=== PATIENT | male | born 1970 | race American Indian/Alaskan Native ===

== ENCOUNTER 2018-11-23 11:44 | Emergency (ER) | payer OTHER, SELFPAY ==
[2018-11-23] MEDS ORDERED: PERCOCET 5/325 PO ONE (12:48)
--- NOTE | 2018-11-23 12:48 | Emergency Department Report ---
ED General Adult HPI - General Chief complaint: Abdominal Pain Stated complaint: LOWER BACK/STOMACH/R SIDE PAIN Time Seen by Provider: 11/23/18 11:52 Source: patient Mode of arrival: Ambulatory Limitations: No Limitations - History of Present Illness Initial comments: Patient is a 47-year-old male presents with right abdominal pain that has been going on since this morning. Patient states the pain is now 10/10 says it feels like is in the right upper quadrant radiates to his back. Patient denies any nausea or vomiting. He states he took some Motrin. But it didn't help. He denies any dysuria and he denies having any hematuria. - Related Data Allergies Allergy/AdvReac Type Severity Reaction Status Date / Time Fish Containing Products Allergy Swelling Verified 11/23/18 11:46 shellfish derived Allergy Swelling Verified 11/23/18 11:46 ED Review of Systems ROS: Stated complaint: LOWER BACK/STOMACH/R SIDE PAIN Other details as noted in HPI Constitutional: denies: chills, fever Eyes: denies: eye pain, eye discharge, vision change ENT: denies: ear pain, throat pain Respiratory: denies: cough, shortness of breath, wheezing Cardiovascular: denies: chest pain, palpitations Endocrine: no symptoms reported Gastrointestinal: denies: abdominal pain, nausea, diarrhea Genitourinary: denies: urgency, dysuria Musculoskeletal: denies: back pain, joint swelling, arthralgia Skin: denies: rash, lesions Neurological: denies: headache, weakness, paresthesias Psychiatric: denies: anxiety, depression Hematological/Lymphatic: denies: easy bleeding, easy bruising ED Past Medical Hx - Past Medical History Hx Hypertension: Yes - Surgical History Additional Surgical History: arm - Social History Smoking Status: Never Smoker Substance Use Type: Alcohol ED Physical Exam - General Limitations: No Limitations General appearance: alert, in no apparent distress - Head Head exam: Present: atraumatic, normocephalic - Eye Eye exam: Present: normal appearance - ENT ENT exam: Present: mucous membranes moist - Neck Neck exam: Present: normal inspection - Respiratory Respiratory exam: Present: normal lung sounds bilaterally. Absent: respiratory distress - Cardiovascular Cardiovascular Exam: Present: regular rate, normal rhythm. Absent: systolic murmur, diastolic murmur, rubs, gallop - GI/Abdominal GI/Abdominal exam: Present: soft, normal bowel sounds - Rectal Rectal exam: Present: deferred - Extremities Exam Extremities exam: Present: normal inspection - Back Exam Back exam: Present: normal inspection - Neurological Exam Neurological exam: Present: alert, oriented X3 - Psychiatric Psychiatric exam: Present: normal affect, normal mood - Skin Skin exam: Present: warm, dry, intact, normal color. Absent: rash ED Course Vital Signs 11/23/18 11/23/18 11:50 12:59 Temperature 97.9 F Pulse Rate 66 Respiratory 18 18 Rate Blood Pressure 159/81 O2 Sat by Pulse 99 99 Oximetry ED Medical Decision Making - Lab Data Result diagrams: 11/23/18 13:19 11/23/18 13:19 Lab Results 11/23/18 11/23/18 Range/Units 13:19 13:19 WBC 9.3 (4.5-11.0) K/mm3 RBC 5.15 H (3.65-5.03) M/mm3 Hgb 15.5 H (11.8-15.2) gm/dl Hct 45.3 (35.5-45.6) % MCV 88 (84-94) fl MCH 30 (28-32) pg MCHC 34 (32-34) % RDW 13.6 (13.2-15.2) % Plt Count 188 (140-440) K/mm3 Lymph % (Auto) 14.1 (13.4-35.0) % [place] % (Auto) 7.2 (0.0-7.3) % Eos % (Auto) 1.9 (0.0-4.3) % Baso % (Auto) 1.0 (0.0-1.8) % Lymph # 1.3 (1.2-5.4) K/mm3 [place] # 0.7 (0.0-0.8) K/mm3 Eos # 0.2 (0.0-0.4) K/mm3 Baso # 0.1 (0.0-0.1) K/mm3 Seg Neutrophils % 75.8 H (40.0-70.0) % Seg Neutrophils # 7.0 (1.8-7.7) K/mm3 Sodium 137 (137-145) mmol/L Potassium 4.1 (3.6-5.0) mmol/L Chloride 97.8 L (98-107) mmol/L Carbon Dioxide 25 (22-30) mmol/L Anion Gap 18 mmol/L BUN 19 (9-20) mg/dL Creatinine 1.4 (0.8-1.5) mg/dL Estimated GFR > 60 ml/min BUN/Creatinine Ratio 14 % Glucose 98 (75-100) mg/dL Calcium 9.4 (8.4-10.2) mg/dL Total Bilirubin 0.40 (0.1-1.2) mg/dL AST 23 (5-40) units/L ALT 23 (7-56) units/L Alkaline Phosphatase 63 (35-129) units/L Total Protein 7.8 (6.3-8.2) g/dL Albumin 4.5 (3.9-5) g/dL Albumin/Globulin Ratio 1.4 % Lipase 18 (13-60) units/L - Radiology Data Radiology results: report reviewed, image reviewed CT abdomen/pelvis: Shows no acute intra-abdominal pathology. 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 ED Disposition Clinical Impression: Right sided abdominal pain Disposition: DC-01 TO HOME OR SELFCARE Is pt being admited?: No Does the pt Need Aspirin: No Condition: Stable Instructions: Abdominal Pain (ED) Referrals: [facility] [Other] - 3-5 Days
[2018-11-23 13:59] LABS: Basophils # (Auto) 0.1 K/mm3 (0.0-0.1); Eosinophils # (Auto) 0.2 K/mm3 (0.0-0.4); Eosinophils % (Auto) 1.9 % (0.0-4.3); Hematocrit 45.3 % (35.5-45.6); Hemoglobin 15.5 gm/dl (11.8-15.2); Lymphocytes # (Auto) 1.3 K/mm3 (1.2-5.4); Lymphocytes % (Auto) 14.1 % (13.4-35.0); Mean Corpuscular HGB Conc 34 % (32-34); Mean Corpuscular Volume 88 fl (84-94); Monocytes # (Auto) 0.7 K/mm3 (0.0-0.8); Monocytes % (Auto) 7.2 % (0.0-7.3); Platelet Count 188 K/mm3 (140-440); Red Blood Count 5.15 M/mm3 (3.65-5.03); Red Cell Distribution Width 13.6 % (13.2-15.2)
[2018-11-23 14:09] LABS: Alanine Aminotransferase 23 units/L (7-56); Albumin 4.5 g/dL (3.9-5); BUN/Creatinine Ratio 14; Blood Urea Nitrogen 19 mg/dL (9-20); Calcium 9.4 mg/dL (8.4-10.2); Hemolysis Index 28
--- NOTE | 2018-11-23 15:56 | Cat Scan Report ---
PROCEDURE: CT ABDOMEN PELVIS WO CON TECHNIQUE: Computerized axial tomography of the abdomen and pelvis was performed without intravenous contrast. This study is performed without intravascular contrast material and its sensitivity for ab dominal and pelvic pathology, including neoplasms, inflammation, abscess, free fluid, thrombosis, art erial dissection and infarction, is reduced compared with a contrast enhanced study. CT DOSE LENGTH PRODUCT: 1172.6 mGycm HISTORY: right sided abd pain COMPARISONS: None . FINDINGS: Visualized lower thorax: Linear atelectasis in left base is noted. Liver: Normal size and attenuation. Spleen: Normal size and attenuation. Gallbladder and biliary system: Normal. Pancreas: Normal. Adrenals: Normal. Kidneys: Normal. No evidence for renal or ureteral calculi seen. No renal obstruction is noted. GI tract: Normal . The appendix is normal. No inflammatory process in the right quadrant is noted. N o inflammatory process in the right lower pattern is noted Lymph nodes and mesentery: Normal. Vasculature: Normal.. Bladder: Normal. Reproductive organs: Normal. Peritoneum: No free fluid. Musculoskeletal structures: No significant abnormality. Other: None. IMPRESSION: No acute intra-abdominal process noted. Linear atelectasis in left base This document is electronically signed by Lurdes Huynh MD., November 23 2018 03:54:08 PM ET
[2018-11-23] MEDS ORDERED: ZOFRAN ORAL LIQ PO ONE (16:17)
[2018-11-23] MEDS ORDERED: ZOFRAN ODT PO ONE (16:32)
[2018-11-23 17:05] VITALS: BP 137/79
== END 2018-11-23 17:04 | disposition home or self-care (01) ==
LOC: ED 11:44
DX: R10.9 Unspecified abdominal pain (principal); I10 Essential (primary) hypertension; Z91.013 Allergy to seafood
CPT/HCPCS: 36415; 74176; 80053; 83690; 85025; Q0162

== ENCOUNTER 2021-08-13 08:04 | Inpatient (IN) | payer OTHER, SELFPAY ==
[2021-08-13] MEDS ORDERED: fentaNYL 100 MCG/2 ML INJ IV ONE (08:36)
[2021-08-13] MEDS ORDERED: METOCLOPRAMIDE 10 MG/2 ML INJ IV ONE (08:36)
[2021-08-13] MEDS ORDERED: KETOROLAC 30 MG/1 ML INJ IV ONE (08:36)
--- NOTE | 2021-08-13 08:36 | Emergency Department Report ---
ED Abdominal Pain HPI - General Chief Complaint: Abdominal Pain Stated Complaint: gallbladder/stomach pain Time Seen by Provider: 08/13/21 08:34 Source: patient Mode of arrival: Ambulatory Limitations: No Limitations - History of Present Illness Initial Comments: Patient presents with abdominal pain. He reports having upper abdominal pain consistent with prior pancreatitis episode. Patient was diagnosed with biliary disease. He had abdominal pain and was told that he had pancreatitis. He has been scheduled for surgery but it is not completed yet. He came in today because of the same pain he had previously, consistent with pancreatitis. Pain is sharp and stabbing in the upper abdomen. It radiates into his back. He has nausea but no vomiting. There is no hematemesis or coffee-ground emesis. Has no melenic stool. There is no history of recent travel or trauma. Pain seems to be constant. Severity scale (0 -10): 9 - Related Data Previous Rx's Medication Instructions Recorded Last Taken Type Promethazine [Phenergan] 25 mg PO Q6HR PRN #30 tab 11/23/18 Unknown Rx Allergies Allergy/AdvReac Type Severity Reaction Status Date / Time Fish Containing Products Allergy Swelling Verified 11/23/18 11:46 shellfish derived Allergy Swelling Verified 11/23/18 11:46 ED Review of Systems ROS: Stated complaint: gallbladder/stomach pain Other details as noted in HPI Comment: All other systems reviewed and negative Constitutional: denies: fever Eyes: denies: vision change ENT: denies: ear pain Respiratory: denies: cough Cardiovascular: denies: chest pain Endocrine: denies: unexplained weight loss Gastrointestinal: as per HPI Genitourinary: denies: urgency Musculoskeletal: as per HPI Skin: denies: rash Neurological: denies: headache Hematological/Lymphatic: denies: easy bruising ED Past Medical Hx - Past Medical History Hx Hypertension: Yes Additional medical history: Cholelithiasis, pancreatitis - Surgical History Additional Surgical History: arm - Family History Family history: hypertension - Social History Smoking Status: Never Smoker Substance Use Type: None - Medications Home Medications: Home Medications Medication Instructions Recorded Confirmed Last Taken Type Promethazine [Phenergan] 25 mg PO Q6HR PRN #30 tab 11/23/18 Unknown Rx ED Physical Exam - General Limitations: No Limitations, Other (Pulse ox noted and normal) General appearance: alert, in no apparent distress, other (Uncomfortable, nontoxic) - Head Head exam: Present: atraumatic, normocephalic - Eye Eye exam: Present: normal appearance, PERRL, EOMI. Absent: scleral icterus - ENT ENT exam: Present: normal orophraynx, normal external ear exam - Neck Neck exam: Present: normal inspection. Absent: meningismus - Respiratory Respiratory exam: Present: normal lung sounds bilaterally. Absent: respiratory distress - Cardiovascular Cardiovascular Exam: Present: regular rate, normal rhythm - GI/Abdominal GI/Abdominal exam: Present: soft, tenderness (Epigastric and right upper quadrant). Absent: guarding, rebound - Extremities Exam Extremities exam: Present: normal capillary refill - Back Exam Back exam: Absent: CVA tenderness (R), CVA tenderness (L) - Neurological Exam Neurological exam: Present: alert, oriented X3, CN II-XII intact, normal gait. Absent: motor sensory deficit - Psychiatric Psychiatric exam: Present: normal affect, normal mood - Skin Skin exam: Present: warm, dry ED Course Vital Signs 08/13/21 08/13/21 08/13/21 08:22 08:23 09:26 Temperature 98.8 F 98.8 F Pulse Rate 61 61 Respiratory 18 11 L Rate Blood Pressure 145/78 Blood Pressure 145/78 [Right] O2 Sat by Pulse 100 97 Oximetry 08/13/21 08/13/21 08/13/21 09:31 09:45 10:01 Temperature Pulse Rate 61 60 49 L Respiratory 14 16 11 L Rate Blood Pressure 156/67 151/73 147/75 Blood Pressure [Right] O2 Sat by Pulse 96 97 98 Oximetry 08/13/21 08/13/21 08/13/21 10:15 10:31 10:45 Temperature Pulse Rate 60 58 L 73 Respiratory 16 15 16 Rate Blood Pressure 153/73 141/74 134/63 Blood Pressure [Right] O2 Sat by Pulse 97 99 98 Oximetry 08/13/21 08/13/21 08/13/21 11:01 11:15 11:21 Temperature Pulse Rate 57 L 70 Respiratory 17 17 Rate Blood Pressure 151/74 147/75 Blood Pressure [Right] O2 Sat by Pulse 97 98 100 Oximetry - Reevaluation(s) Reevaluation #1: 08/13/21 08:36 Labs ordered. Reevaluation #2: 08/13/21 10:42 Labs were noted. We will proceed with admission. ED Medical Decision Making - Lab Data Result diagrams: 08/13/21 09:09 08/13/21 09:09 - Medical Decision Making Patient presents with abdominal pain. He had a history of gallstone pancreatitis. It appears he has similar at this time. There is no evidence of an elevated bilirubin suggesting an impacted stone. He does have pancreatitis which can be treated symptomatically. He will be admitted for ongoing evaluation. He will likely undergo surgical consultation. He does not appear to be septic or toxic from this. Critical Care Time: No Critical care attestation.: If time is entered above; I have spent that time in minutes in the direct care of this critically ill patient, excluding procedure time. ED Disposition Clinical Impression: Upper abdominal pain, Gallstone pancreatitis, Transaminitis Disposition: ADMITTED INPATIENT Is pt being admited?: Yes Condition: Stable Referrals: PRIMARY CARE, [Referring] - 3-5 Days
[2021-08-13 10:16] LABS: Alanine Aminotransferase 381 units/L (7-56); Albumin 4.5 g/dL (3.9-5); BUN/Creatinine Ratio 10; Blood Urea Nitrogen 8 mg/dL (9-20); Calcium 9.7 mg/dL (8.4-10.2); Hemolysis Index 253
[2021-08-13 10:19] LABS: Hematocrit 47.5 % (35.5-45.6); Hemoglobin 15.6 gm/dl (11.8-15.2); Mean Corpuscular HGB Conc 33 % (32-34); Mean Corpuscular Volume 89 fl (84-94); Platelet Count 210 K/mm3 (140-440); Red Blood Count 5.36 M/mm3 (3.65-5.03); Red Cell Distribution Width 14.7 % (13.2-15.2)
[2021-08-13 10:52] LABS: Basophils % (Manual) 0 % (0.0-1.8); Eosinophils % (Manual) 0 % (0.0-4.3); Large Platelets Few; Platelet Estimate Consistent w Auto; RBC Morphology Normal; Total Cells Counted 100
[2021-08-13] MEDS ORDERED: MORPHINE 4 MG/1 ML INJ IV ONE (11:33)
[2021-08-13] MEDS ORDERED: ONDANSETRON 4 MG/2 ML INJ ONE (11:41)
[2021-08-13] MEDS ORDERED: HYDROmorphone 1 MG/1 ML INJ IV ONE (12:57)
--- NOTE | 2021-08-13 13:15 | Cat Scan Report ---
CT ABDOMEN AND PELVIS WITH CONTRAST HISTORY: Pancreatitis. Acute generalized abdominal pain COMPARISON: CT abdomen/pelvis from 11/23/2018 TECHNIQUE: CT images of the abdomen and pelvis were obtained following administration of intravenous contrast. All CT scans at this location are performed using CT dose reduction for ALARA by means of automated exposure control. CONTRAST: 100 ml of intravenous contrast administered. FINDINGS: Lungs/bones: There is mild basilar atelectasis with otherwise clear lungs. No acute osseous abnormal ity identified. Abdomen/pelvis: There is severe inflammatory stranding about the pancreas which also appears [place] us but otherwise no necrotic change identified. There is no stone disease, mass, or ductal dilatation . No organized fluid collection. Several shotty regional lymph nodes are present and there is small v olume free fluid primarily tracking in the retroperitoneum. Mild circumferential wall thickening is s een involving the second and third segments of the duodenum which is most likely reactive. The spleni c vein remains patent with no thrombosis. The liver, gallbladder, biliary tree, spleen, adrenals, kidneys, and remainder of the proximal GI tra ct appear unremarkable. Prostate is slightly enlarged but otherwise unremarkable. The urinary bladder is unremarkable. No acu te colonic abnormality. The appendix is normal. IMPRESSION: 1. Acute pancreatitis as outlined above. No clear etiology on this exam. Signer Name: Anuj Way MD Signed: 08/13/2021 1:11 PM Workstation Name: [id number]
--- NOTE | 2021-08-13 13:23 | History and Physical Report ---
History of Present Illness Date of examination: 08/13/21 Date of admission: 08/13/2021 Chief complaint: Abdominal pain for 2 days History of present illness: 50-year-old -[place] male with history of recurrent pancreatitis and cholelithiasis and hypertension comes in for severe epigastric pain for 2 days associated with nausea and vomiting. Pain is about 10 on a scale of 1-10. Pain is intermittent. Patient used to drink excessively on a regular basis till 6 months ago. Patient stopped alcohol for the last 6 months. No withdrawal symptoms. Patient also had cholelithiasis and inflammation of the gallbladder. Patient is doing well for the last 6 months. Today in the. Pain is extremely severe. Sharp and intermittent. 10-10 on a scale of 1-10. Food is an exacerbating factor. No fever or chills. No hematemesis. No coffee-ground emesis. No black stools. No recent history of travel. Last admission was in November 2018 and was evaluated in the emergency room for the same complaint of right upper quadrant pain and was discharged after CT abdomen was done. Patient did not have any follow-up after that. - Past Medical History --Hypertension: Yes --Additional medical history: Cholelithiasis, pancreatitis - Surgical History --Additional Surgical History: arm - Family History --Family history: hypertension - Social History Smoking Status: Never Smoker Substance Use Type: None - Medications Home Medications: Home Medications Medication Instructions Recorded Confirmed Last Taken Type Promethazine [Phenergan] 25 mg PO Q6HR PRN #30 tab 11/23/18 Unknown Rx Medications and Allergies Allergies Allergy/AdvReac Type Severity Reaction Status Date / Time Fish Containing Products Allergy Swelling Verified 08/13/21 11:42 shellfish derived Allergy Swelling Verified 08/13/21 11:42 Home Medications Medication Instructions Recorded Confirmed Last Taken Type Promethazine [Phenergan] 25 mg PO Q6HR PRN #30 tab 11/23/18 08/13/21 Unknown Rx Active Meds: Active Medications Sodium Chloride (Nacl 0.9% 1000 Ml) 1,000 mls @ 125 mls/hr IV DIRECT RANJAN Exam - Constitutional Vitals: Temp Pulse Resp BP Pulse Ox 98.8 F 58 L 15 147/79 95 08/13/21 08:23 08/13/21 12:01 08/13/21 12:01 08/13/21 12:01 08/13/21 12:01 General appearance: Present: mild distress, well-nourished - EENT Eyes: Present: PERRL ENT: hearing intact, clear oral mucosa - Neck Neck: Present: supple, normal ROM - Respiratory Respiratory effort: normal Respiratory: bilateral: CTA - Cardiovascular Heart rate: 78 Rhythm: regular Heart Sounds: Present: S1 & S2. Absent: rub, click - Extremities Extremities: no ischemia, pulses intact, pulses symmetrical, No edema Peripheral Pulses: within normal limits - Abdominal General gastrointestinal: Present: soft, non-tender, non-distended, normal bowel sounds Localized gastrointestinal: tender: diffuse, epigastric periumbilical, guarding: diffuse, epigastric periumbilical Male genitourinary: Present: normal - Rectal Rectal Exam: deferred - Integumentary Integumentary: Present: clear, warm, dry - Musculoskeletal Musculoskeletal: gait normal, strength equal bilaterally - Psychiatric Psychiatric: appropriate mood/affect, intact judgment & insight - Neurologic Neurologic: CNII-XII intact, moves all extremities - Allied Health Allied health notes reviewed: nursing, case management Results - Labs CBC & Chem 7: 08/14/21 05:07 08/14/21 05:07 Labs: Laboratory Last Values WBC 10.9 K/mm3 (4.5-11.0) 08/13/21 09:09 RBC 5.36 M/mm3 (3.65-5.03) H 08/13/21 09:09 Hgb 15.6 gm/dl (11.8-15.2) H 08/13/21 09:09 Hct 47.5 % (35.5-45.6) H 08/13/21 09:09 MCV 89 fl (84-94) 08/13/21 09:09 MCH 29 pg (28-32) 08/13/21 09:09 MCHC 33 % (32-34) 08/13/21 09:09 RDW 14.7 % (13.2-15.2) 08/13/21 09:09 Plt Count 210 K/mm3 (140-440) 08/13/21 09:09 Add Manual Diff Complete 08/13/21 09:09 Total Counted 100 08/13/21 09:09 Seg Neuts % (Manual) 96.0 % (40.0-70.0) H 08/13/21 09:09 Band Neutrophils % 0 % 08/13/21 09:09 Lymphocytes % (Manual) 2.0 % (13.4-35.0) L 08/13/21 09:09 Reactive Lymphs % (Man) 0 % 08/13/21 09:09 Monocytes % (Manual) 2.0 % (0.0-7.3) 08/13/21 09:09 Eosinophils % (Manual) 0 % (0.0-4.3) 08/13/21 09:09 Basophils % (Manual) 0 % (0.0-1.8) 08/13/21 09:09 Metamyelocytes % 0 % 08/13/21 09:09 Myelocytes % 0 % 08/13/21 09:09 Promyelocytes % 0 % 08/13/21 09:09 Blast Cells % 0 % 08/13/21 09:09 Nucleated RBC % Not Reportable 08/13/21 09:09 Seg Neutrophils # Man 10.5 K/mm3 (1.8-7.7) H 08/13/21 09:09 Band Neutrophils # 0.0 K/mm3 08/13/21 09:09 Lymphocytes # (Manual) 0.2 K/mm3 (1.2-5.4) L 08/13/21 09:09 Abs React Lymphs (Man) 0.0 K/mm3 08/13/21 09:09 Monocytes # (Manual) 0.2 K/mm3 (0.0-0.8) 08/13/21 09:09 Eosinophils # (Manual) 0.0 K/mm3 (0.0-0.4) 08/13/21 09:09 Basophils # (Manual) 0.0 K/mm3 (0.0-0.1) 08/13/21 09:09 Metamyelocytes # 0.0 K/mm3 08/13/21 09:09 Myelocytes # 0.0 K/mm3 08/13/21 09:09 Promyelocytes # 0.0 K/mm3 08/13/21 09:09 Blast Cells # 0.0 K/mm3 08/13/21 09:09 WBC Morphology Not Reportable 08/13/21 09:09 Hypersegmented Neuts Not Reportable 08/13/21 09:09 Hyposegmented Neuts Not Reportable 08/13/21 09:09 Hypogranular Neuts Not Reportable 08/13/21 09:09 Smudge Cells Not Reportable 08/13/21 09:09 Toxic Granulation Not Reportable 08/13/21 09:09 Toxic Vacuolation Not Reportable 08/13/21 09:09 Dohle Bodies Not Reportable 08/13/21 09:09 Pelger-Huet Anomaly Not Reportable 08/13/21 09:09 Chucky Rods Not Reportable 08/13/21 09:09 Platelet Estimate Consistent w auto 08/13/21 09:09 Clumped Platelets Not Reportable 08/13/21 09:09 Plt Clumps, EDTA Not Reportable 08/13/21 09:09 Large Platelets Few 08/13/21 09:09 Giant Platelets Not Reportable 08/13/21 09:09 Platelet Satelliting Not Reportable 08/13/21 09:09 Plt Morphology Comment Not Reportable 08/13/21 09:09 RBC Morphology Normal 08/13/21 09:09 Dimorphic RBCs Not Reportable 08/13/21 09:09 Polychromasia Not Reportable 08/13/21 09:09 Hypochromasia Not Reportable 08/13/21 09:09 Poikilocytosis Not Reportable 08/13/21 09:09 Anisocytosis Not Reportable 08/13/21 09:09 Microcytosis Not Reportable 08/13/21 09:09 Macrocytosis Not Reportable 08/13/21 09:09 Spherocytes Not Reportable 08/13/21 09:09 Pappenheimer Bodies Not Reportable 08/13/21 09:09 Sickle Cells Not Reportable 08/13/21 09:09 Target Cells Not Reportable 08/13/21 09:09 Tear Drop Cells Not Reportable 08/13/21 09:09 Ovalocytes Not Reportable 08/13/21 09:09 Helmet Cells Not Reportable 08/13/21 09:09 [place] Bodies Not Reportable 08/13/21 09:09 Morgan Rings Not Reportable 08/13/21 09:09 Mukesh Cells Not Reportable 08/13/21 09:09 Bite Cells Not Reportable 08/13/21 09:09 Crenated Cell Not Reportable 08/13/21 09:09 Elliptocytes Not Reportable 08/13/21 09:09 Acanthocytes (Spur) Not Reportable 08/13/21 09:09 Rouleaux Not Reportable 08/13/21 09:09 Hemoglobin C Crystals Not Reportable 08/13/21 09:09 Schistocytes Not Reportable 08/13/21 09:09 Malaria parasites Not Reportable 08/13/21 09:09 Florencio Bodies Not Reportable 08/13/21 09:09 Hem Pathologist Commnt No 08/13/21 09:09 Sodium 138 mmol/L (137-145) 08/13/21 09:09 Potassium 4.8 mmol/L (3.6-5.0) 08/13/21 09:09 Chloride 100.5 mmol/L (98-107) 08/13/21 09:09 Carbon Dioxide 22 mmol/L (22-30) 08/13/21 09:09 Anion Gap 20 mmol/L 08/13/21 09:09 BUN 8 mg/dL (9-20) L 08/13/21 09:09 Creatinine 0.8 mg/dL (0.8-1.3) 08/13/21 09:09 Estimated GFR > 60 ml/min 08/13/21 09:09 BUN/Creatinine Ratio 10 % 08/13/21 09:09 Glucose 129 mg/dL (75-100) H 08/13/21 09:09 Calcium 9.7 mg/dL (8.4-10.2) 08/13/21 09:09 Total Bilirubin 0.60 mg/dL (0.1-1.2) 08/13/21 09:09 AST 242 units/L (5-40) H 08/13/21 09:09 ALT 381 units/L (7-56) H 08/13/21 09:09 Alkaline Phosphatase 110 units/L (35-129) 08/13/21 09:09 Total Protein 7.5 g/dL (6.3-8.2) 08/13/21 09:09 Albumin 4.5 g/dL (3.9-5) 08/13/21 09:09 Albumin/Globulin Ratio 1.5 % 08/13/21 09:09 Lipase 1664 units/L (13-60) H 08/13/21 09:09 Short CBC 08/13/21 08/14/21 Range/Units 09:09 05:07 WBC 10.9 12.9 H (4.5-11.0) K/mm3 Hgb 15.6 H 13.9 (11.8-15.2) gm/dl Hct 47.5 H 42.0 (35.5-45.6) % Plt Count 210 189 (140-440) K/mm3 BMP 08/13/21 08/14/21 09:09 05:07 Sodium 138 139 Potassium 4.8 4.1 Chloride 100.5 102.0 Carbon Dioxide 22 24 BUN 8 L 10 Creatinine 0.8 0.8 Glucose 129 H 112 H Calcium 9.7 9.4 Liver Function 08/13/21 08/14/21 Range/Units 09:09 05:07 Total Bilirubin 0.60 0.70 (0.1-1.2) mg/dL AST 242 H 75 H (5-40) units/L ALT 381 H 221 H (7-56) units/L Alkaline Phosphatase 110 102 (35-129) units/L Albumin 4.5 4.1 (3.9-5) g/dL - Imaging and Cardiology CT scan - chest: report reviewed Imaging and Cardiology: CT of the abdomen and pelvis with contrast There is severe inflammatory stranding about the pancreas which also appears edematous but otherwise no necrotic change identified. There is no stone disease mass or ductal obstruction. No organized fluid collection. Severe shotty regional lymph nodes are present and there is a small volume of free fluid primarily tracking in the retroperitoneum. Mild circumferential wall thickening is seen involving the second and third segments of the duodenum which is most likely reactive. The splenic vein remains patent with no thrombosis. The liver gallbladder biliary tree spleen at [place] [facility] and reminder of the proximal GI tract appear unremarkable. Final impression acute pancreatitis as outlined above. No clinical clear thought etiology on this exam. Assessment and Plan Advance Directives: Yes (Full code) VTE prophylaxis?: Chemical Plan of care discussed with patient/family: Yes - Patient Problems (1) Acute pancreatitis Current Visit: Yes Status: Acute Qualifiers: Pancreatitis type: biliary Plan to address problem: Gallstone induced pancreatitis We will keep the patient n.p.o. Repeat amylase and lipase Patient may be due for cholecystectomy because of the recurrent pancreatitis and cholelithiasis Surgery consult requested IV fluids for now IV pain management (2) Hypertension Current Visit: Yes Status: Acute (3) Transaminitis Current Visit: Yes Status: Acute Plan to address problem: Secondary to gallstone induced pancreatitis and liver injury Trend the AST and ALT levels Hepatitis profile (4) Hypertension Current Visit: Yes Status: Chronic Qualifiers: Hypertension type: primary hypertension Qualified Code(s): I10 - Essential (primary) hypertension Plan to address problem: Catapres patch if necessary (5) Polycythemia due to fall in plasma volume Current Visit: Yes Status: Acute Plan to address problem: IV fluids for now (6) DVT prophylaxis Current Visit: Yes Status: Acute Plan to address problem: On heparin and GI prophylaxis (7) Advance care planning Current Visit: Yes Status: Acute Plan to address problem: Disease education conducted, care plan discussed, diagnosis discussed, prognosis discussed. Patient is full code. Patient acknowledges understanding and agreement with care plan. +30 minutes.
[2021-08-13] MEDS ORDERED: ACETAMINOPHEN 325 MG TAB PO PRN (13:24)
[2021-08-13] MEDS ORDERED: ONDANSETRON 4 MG/2 ML INJ IV PRN ×2 (13:24→13:33)
[2021-08-13] MEDS ORDERED: DEXTROSE 50% IN WATER (25GM) 50 ML SYRINGE IV PRN (13:24)
[2021-08-13] MEDS ORDERED: DEXTROSE 10% *Hypoglycemia IV PRN (13:35)
--- NOTE | 2021-08-13 14:40 | Consultation ---
History of Present Illness Consult date: 08/13/21 Reason for consult: abdominal pain Chief complaint: Abdominal pain - History of present illness History of present illness: 50-year-old male with a past medical history of hypertension who presents to the emergency room with ongoing severe, constant upper abdominal pain. The patient states he was hospitalized for 1 week about 1 week ago at the [facility] and was diagnosed with pancreatitis secondary to gallstones. He was treated accordingly and was recommended to undergo cholecystectomy however OR time was unavailable. He was therefore scheduled for outpatient cholecystectomy in October. The patient states that his pain returned. It is localized to the epigastrium and radiates across the upper abdomen into the back. It is sharp and constant. No alleviating or exacerbating factors. He denies fevers or chills. Positive nausea but no vomiting. Past History Past Medical History: hypertension Past Surgical History: No surgical history Social history: no significant social history Family history: no significant family history Medications and Allergies Allergies Allergy/AdvReac Type Severity Reaction Status Date / Time Fish Containing Products Allergy Swelling Verified 08/13/21 11:42 shellfish derived Allergy Swelling Verified 08/13/21 11:42 Home Medications Medication Instructions Recorded Confirmed Last Taken Type Promethazine [Phenergan] 25 mg PO Q6HR PRN #30 tab 11/23/18 Unknown Rx Active Meds: Active Medications Acetaminophen (Acetaminophen 325 Mg Tab) 650 mg PO Q4H PRN PRN Reason: Pain MILD(1-3)/Fever >100.5/OSPINA Dextrose (Dextrose 10% *Hypoglycemia) 0 ml IV PRN PRN PRN Reason: Hypoglycemia Heparin Sodium (Porcine) (Heparin 5,000 Unit/1 Ml Vial) 5,000 unit SUB-Q Q12HR RANJAN Hydromorphone HCl (Hydromorphone 1 Mg/1 Ml Inj) 0.5 mg IV Q3H PRN PRN Reason: Pain, Moderate (4-6) Sodium Chloride (Nacl 0.9% 1000 Ml) 1,000 mls @ 125 mls/hr IV DIRECT RANJAN Morphine Sulfate (Morphine 2 Mg/1 Ml Inj) 2 mg IV Q4H PRN PRN Reason: Pain, Moderate (4-6) Ondansetron HCl (Ondansetron 4 Mg/2 Ml Inj) 4 mg IV Q6H PRN PRN Reason: Nausea And Vomiting Sodium Chloride (Sodium Chloride 0.9% 10 Ml Flush Syringe) 10 ml IV BID RANJAN Sodium Chloride (Sodium Chloride 0.9% 10 Ml Flush Syringe) 10 ml IV PRN PRN PRN Reason: LINE FLUSH Review of Systems All systems: negative (10 point ROS performed and negative except for that listed in HPI) Exam Vital Signs Temp Pulse BP 98.8 F 61 145/78 08/13/21 08:22 08/13/21 08:22 08/13/21 08:22 Narrative exam: Gen.: Awake, alert, oriented x3. Mild distress due to pain ENT: Trachea midline. No lymphadenopathy. No scleral icterus or conjunctival pallor CV: S1, S2 present Respiratory: No audible wheezes Abdomen: Soft, nondistended, epigastric tenderness to palpation. No rebound, rigidity, guarding Extremities: No clubbing, cyanosis, edema Results - Labs 08/13/21 09:09 08/13/21 09:09 Abnormal lab results 08/13/21 08/13/21 Range/Units 09:09 09:09 RBC 5.36 H (3.65-5.03) M/mm3 Hgb 15.6 H (11.8-15.2) gm/dl Hct 47.5 H (35.5-45.6) % Seg Neuts % (Manual) 96.0 H (40.0-70.0) % Lymphocytes % (Manual) 2.0 L (13.4-35.0) % Seg Neutrophils # Man 10.5 H (1.8-7.7) K/mm3 Lymphocytes # (Manual) 0.2 L (1.2-5.4) K/mm3 BUN 8 L (9-20) mg/dL Glucose 129 H (75-100) mg/dL AST 242 H (5-40) units/L ALT 381 H (7-56) units/L Lipase 1664 H (13-60) units/L Diabetes panel 08/13/21 Range/Units 09:09 Sodium 138 (137-145) mmol/L Potassium 4.8 (3.6-5.0) mmol/L Chloride 100.5 (98-107) mmol/L Carbon Dioxide 22 (22-30) mmol/L BUN 8 L (9-20) mg/dL Creatinine 0.8 (0.8-1.3) mg/dL Glucose 129 H (75-100) mg/dL Calcium 9.7 (8.4-10.2) mg/dL AST 242 H (5-40) units/L ALT 381 H (7-56) units/L Alkaline Phosphatase 110 (35-129) units/L Total Protein 7.5 (6.3-8.2) g/dL Albumin 4.5 (3.9-5) g/dL Calcium panel 08/13/21 Range/Units 09:09 Calcium 9.7 (8.4-10.2) mg/dL Albumin 4.5 (3.9-5) g/dL Pituitary panel 08/13/21 Range/Units 09:09 Sodium 138 (137-145) mmol/L Potassium 4.8 (3.6-5.0) mmol/L Chloride 100.5 (98-107) mmol/L Carbon Dioxide 22 (22-30) mmol/L BUN 8 L (9-20) mg/dL Creatinine 0.8 (0.8-1.3) mg/dL Glucose 129 H (75-100) mg/dL Calcium 9.7 (8.4-10.2) mg/dL Adrenal panel 08/13/21 Range/Units 09:09 Sodium 138 (137-145) mmol/L Potassium 4.8 (3.6-5.0) mmol/L Chloride 100.5 (98-107) mmol/L Carbon Dioxide 22 (22-30) mmol/L BUN 8 L (9-20) mg/dL Creatinine 0.8 (0.8-1.3) mg/dL Glucose 129 H (75-100) mg/dL Calcium 9.7 (8.4-10.2) mg/dL Total Bilirubin 0.60 (0.1-1.2) mg/dL AST 242 H (5-40) units/L ALT 381 H (7-56) units/L Alkaline Phosphatase 110 (35-129) units/L Total Protein 7.5 (6.3-8.2) g/dL Albumin 4.5 (3.9-5) g/dL - Imaging CT scan - abdomen: report reviewed, image reviewed CT scan - pelvis: report reviewed, image reviewed Assessment and Plan 50-year-old male with acute pancreatitis, and history of gallstones diagnosed at the [facility] abdomen and pelvis reviewed -pancreatitis without necrosis, evidence of inf ection, well organized collections. No gallstones seen. Plan: 1. NPO 2. IVF - NS@125cc/hr 3. prn pain and nausea control 4. DVT ppx 5. CMP, lipase, amylase in am 6. obtain abd u/s 7. Based on history patient has a diagnosis of gallstone pancreatitis. Will review results of abdominal ultrasound. Patient will likely require cholecystectomy during this admission. I discussed this with him in detail. I explained that cholecystectomy will be scheduled once the lipase is close to normal indicating pancreatitis is improving. The patient understands. Thank you for this consultation. Please call with any questions or concerns. Evaluation and treatment of this patient was during the time of the national and state emergency arising from COVID19 coronavirus pandemic. Treatment and procedures performed meet the current and available best practice and guidelines for patient during the COVID pandemic.
[2021-08-13] MEDS: MORPHINE 2 MG/1 ML INJ IV PRN ×2 (15:50→21:42)
[2021-08-13] MEDS: SODIUM CHLORIDE 0.9% 1000 ML 1,000 ML IV SCH (15:51)
[2021-08-13] MEDS: HEPARIN 5,000 UNIT/1 ML VIAL SUB-Q SCH (21:26)
[2021-08-14] MEDS: MORPHINE 2 MG/1 ML INJ IV PRN ×4 (00:47→21:04)
[2021-08-14] MEDS: HYDROmorphone 1 MG/1 ML INJ IV PRN ×3 (05:27→23:52)
[2021-08-14 06:07] LABS: Basophils % (Auto) 0.2 % (0.0-1.8); Hemoglobin 13.9 gm/dl (11.8-15.2); Lymphocytes # (Auto) 0.6 K/mm3 (1.2-5.4); Lymphocytes % (Auto) 4.7 % (13.4-35.0); Mean Corpuscular HGB Conc 33 % (32-34); Mean Corpuscular Volume 88 fl (84-94); Monocytes # (Auto) 1.1 K/mm3 (0.0-0.8); Monocytes % (Auto) 8.3 % (0.0-7.3); Platelet Count 189 K/mm3 (140-440); Red Blood Count 4.77 M/mm3 (3.65-5.03)
[2021-08-14 06:31] LABS: Alanine Aminotransferase 221 units/L (7-56); Albumin 4.1 g/dL (3.9-5); BUN/Creatinine Ratio 13; Blood Urea Nitrogen 10 mg/dL (9-20); Calcium 9.4 mg/dL (8.4-10.2); Hemolysis Index 47
[2021-08-14] MEDS: HEPARIN 5,000 UNIT/1 ML VIAL SUB-Q SCH ×2 (09:00→21:03)
--- NOTE | 2021-08-14 09:55 | Progress Note ---
Assessment and Plan Assessment and plan: #Gallstone pancreatitis #Leukocytosis WBC 12.9 --> likely secondary to pancreatitis and not infectious etiology Lipase 1664--> 583 CT abdomen/pelvis revealing for acute pancreatitis. Patient has been diagnosed with with this before; however, cholecystectomy was unable to be performed at that time due to unavailability in the OR. It was suggested to have the procedure performed in the outpatient setting, but this was not performed. General surgery consulted; appreciate recs Continue n.p.o. status. Continue IV fluid resuscitation. Continue analgesics and antiemetics. Pending right upper quadrant ultrasound Continue to monitor #Elevated transaminasesimproving AST 242, ALT 381 Likely secondary to gallstone pancreatitis Monitor with CMP #Hypertension - home medications: None listed - current medications: Currently holding as patient is normotensive - SBP goal <160 and DBP goal <90 while inpatient - continue to monitor #Advanced care planning -Disease education conducted, care plan discussed, diagnoses discussed, prognosis discussed, and patient acknowledges understanding with care plan -Time: +30 min Disposition Plan: Continue medical management Total Time Spent with Patient (Minutes): 30 minutes History Interval history: No acute events overnight. Hospitalist Physical - Constitutional Vitals: Temp Pulse Resp BP Pulse Ox 98.6 F 80 16 169/88 93 08/13/21 21:46 08/14/21 05:13 08/14/21 05:13 08/14/21 05:13 08/14/21 05:13 General appearance: Present: no acute distress, well-nourished - EENT Eyes: Present: PERRL, EOM intact ENT: hearing intact, clear oral mucosa, dentition normal - Neck Neck: Present: supple, normal ROM - Respiratory Respiratory effort: normal Respiratory: bilateral: CTA - Cardiovascular Rhythm: regular Heart Sounds: Present: S1 & S2 - Extremities Extremities: no ischemia, pulses intact, pulses symmetrical, No edema, normal temperature, normal color, Full ROM Peripheral Pulses: within normal limits - Abdominal General gastrointestinal: soft, tender, non-distended, normal bowel sounds Localized gastrointestinal: tender: epigastric periumbilical - Integumentary Integumentary: Present: clear, warm, dry - Psychiatric Psychiatric: appropriate mood/affect, intact judgment & insight, memory intact, cooperative - Neurologic Neurologic: CNII-XII intact, moves all extremities - Allied Health Allied health notes reviewed: nursing Results - Labs CBC & Chem 7: 08/14/21 05:07 08/14/21 05:07 Labs: Laboratory Last Values WBC 12.9 K/mm3 (4.5-11.0) H 08/14/21 05:07 RBC 4.77 M/mm3 (3.65-5.03) 08/14/21 05:07 Hgb 13.9 gm/dl (11.8-15.2) 08/14/21 05:07 Hct 42.0 % (35.5-45.6) 08/14/21 05:07 MCV 88 fl (84-94) 08/14/21 05:07 MCH 29 pg (28-32) 08/14/21 05:07 MCHC 33 % (32-34) 08/14/21 05:07 RDW 15.0 % (13.2-15.2) 08/14/21 05:07 Plt Count 189 K/mm3 (140-440) 08/14/21 05:07 Lymph % (Auto) 4.7 % (13.4-35.0) L 08/14/21 05:07 [place] % (Auto) 8.3 % (0.0-7.3) H 08/14/21 05:07 Eos % (Auto) 0.0 % (0.0-4.3) 08/14/21 05:07 Baso % (Auto) 0.2 % (0.0-1.8) 08/14/21 05:07 Lymph # (Auto) 0.6 K/mm3 (1.2-5.4) L 08/14/21 05:07 [place] # (Auto) 1.1 K/mm3 (0.0-0.8) H 08/14/21 05:07 Eos # (Auto) 0.0 K/mm3 (0.0-0.4) 08/14/21 05:07 Baso # (Auto) 0.0 K/mm3 (0.0-0.1) 08/14/21 05:07 Add Manual Diff Complete 08/13/21 09:09 Total Counted 100 08/13/21 09:09 Seg Neutrophils % 86.8 % (40.0-70.0) H 08/14/21 05:07 Seg Neuts % (Manual) 96.0 % (40.0-70.0) H 08/13/21 09:09 Band Neutrophils % 0 % 08/13/21 09:09 Lymphocytes % (Manual) 2.0 % (13.4-35.0) L 08/13/21 09:09 Reactive Lymphs % (Man) 0 % 08/13/21 09:09 Monocytes % (Manual) 2.0 % (0.0-7.3) 08/13/21 09:09 Eosinophils % (Manual) 0 % (0.0-4.3) 08/13/21 09:09 Basophils % (Manual) 0 % (0.0-1.8) 08/13/21 09:09 Metamyelocytes % 0 % 08/13/21 09:09 Myelocytes % 0 % 08/13/21 09:09 Promyelocytes % 0 % 08/13/21 09:09 Blast Cells % 0 % 08/13/21 09:09 Nucleated RBC % Not Reportable 08/13/21 09:09 Seg Neutrophils # 11.2 K/mm3 (1.8-7.7) H 08/14/21 05:07 Seg Neutrophils # Man 10.5 K/mm3 (1.8-7.7) H 08/13/21 09:09 Band Neutrophils # 0.0 K/mm3 08/13/21 09:09 Lymphocytes # (Manual) 0.2 K/mm3 (1.2-5.4) L 08/13/21 09:09 Abs React Lymphs (Man) 0.0 K/mm3 08/13/21 09:09 Monocytes # (Manual) 0.2 K/mm3 (0.0-0.8) 08/13/21 09:09 Eosinophils # (Manual) 0.0 K/mm3 (0.0-0.4) 08/13/21 09:09 Basophils # (Manual) 0.0 K/mm3 (0.0-0.1) 08/13/21 09:09 Metamyelocytes # 0.0 K/mm3 08/13/21 09:09 Myelocytes # 0.0 K/mm3 08/13/21 09:09 Promyelocytes # 0.0 K/mm3 08/13/21 09:09 Blast Cells # 0.0 K/mm3 08/13/21 09:09 WBC Morphology Not Reportable 08/13/21 09:09 Hypersegmented Neuts Not Reportable 08/13/21 09:09 Hyposegmented Neuts Not Reportable 08/13/21 09:09 Hypogranular Neuts Not Reportable 08/13/21 09:09 Smudge Cells Not Reportable 08/13/21 09:09 Toxic Granulation Not Reportable 08/13/21 09:09 Toxic Vacuolation Not Reportable 08/13/21 09:09 Dohle Bodies Not Reportable 08/13/21 09:09 Pelger-Huet Anomaly Not Reportable 08/13/21 09:09 Chukcy Rods Not Reportable 08/13/21 09:09 Platelet Estimate Consistent w auto 08/13/21 09:09 Clumped Platelets Not Reportable 08/13/21 09:09 Plt Clumps, EDTA Not Reportable 08/13/21 09:09 Large Platelets Few 08/13/21 09:09 Giant Platelets Not Reportable 08/13/21 09:09 Platelet Satelliting Not Reportable 08/13/21 09:09 Plt Morphology Comment Not Reportable 08/13/21 09:09 RBC Morphology Normal 08/13/21 09:09 Dimorphic RBCs Not Reportable 08/13/21 09:09 Polychromasia Not Reportable 08/13/21 09:09 Hypochromasia Not Reportable 08/13/21 09:09 Poikilocytosis Not Reportable 08/13/21 09:09 Anisocytosis Not Reportable 08/13/21 09:09 Microcytosis Not Reportable 08/13/21 09:09 Macrocytosis Not Reportable 08/13/21 09:09 Spherocytes Not Reportable 08/13/21 09:09 Pappenheimer Bodies Not Reportable 08/13/21 09:09 Sickle Cells Not Reportable 08/13/21 09:09 Target Cells Not Reportable 08/13/21 09:09 Tear Drop Cells Not Reportable 08/13/21 09:09 Ovalocytes Not Reportable 08/13/21 09:09 Helmet Cells Not Reportable 08/13/21 09:09 [place] Bodies Not Reportable 08/13/21 09:09 [place] Rings Not Reportable 08/13/21 09:09 [place]esh Cells Not Reportable 08/13/21 09:09 Bite Cells Not Reportable 08/13/21 09:09 Crenated Cell Not Reportable 08/13/21 09:09 Elliptocytes Not Reportable 08/13/21 09:09 Acanthocytes (Spur) Not Reportable 08/13/21 09:09 Rouleaux Not Reportable 08/13/21 09:09 Hemoglobin C Crystals Not Reportable 08/13/21 09:09 Schistocytes Not Reportable 08/13/21 09:09 Malaria parasites Not Reportable 08/13/21 09:09 Florencio Bodies Not Reportable 08/13/21 09:09 Hem Pathologist Commnt No 08/13/21 09:09 Sodium 139 mmol/L (137-145) 08/14/21 05:07 Potassium 4.1 mmol/L (3.6-5.0) 08/14/21 05:07 Chloride 102.0 mmol/L (98-107) 08/14/21 05:07 Carbon Dioxide 24 mmol/L (22-30) 08/14/21 05:07 Anion Gap 17 mmol/L 08/14/21 05:07 BUN 10 mg/dL (9-20) 08/14/21 05:07 Creatinine 0.8 mg/dL (0.8-1.3) 08/14/21 05:07 Estimated GFR > 60 ml/min 08/14/21 05:07 BUN/Creatinine Ratio 13 % 08/14/21 05:07 Glucose 112 mg/dL (75-100) H 08/14/21 05:07 Calcium 9.4 mg/dL (8.4-10.2) 08/14/21 05:07 Total Bilirubin 0.70 mg/dL (0.1-1.2) 08/14/21 05:07 AST 75 units/L (5-40) H 08/14/21 05:07 ALT 221 units/L (7-56) H 08/14/21 05:07 Alkaline Phosphatase 102 units/L (35-129) 08/14/21 05:07 Total Protein 6.9 g/dL (6.3-8.2) 08/14/21 05:07 Albumin 4.1 g/dL (3.9-5) 08/14/21 05:07 Albumin/Globulin Ratio 1.5 % 08/14/21 05:07 Triglycerides 84 mg/dL (2-149) 08/14/21 05:07 Amylase 645 units/L (27-131) H 08/14/21 05:07 Lipase 583 units/L (13-60) H 08/14/21 05:07 Navarrete/IV: Voiding Method Toilet Active Medications - Current Medications Current Medications: Generic Name Dose Route Start Last Admin Trade Name Freq PRN Reason Stop Dose Admin Acetaminophen 650 mg 08/13/21 13:24 Acetaminophen 325 Mg Tab PO Q4H PRN Pain MILD(1-3)/Fever >100.5/OSPINA Dextrose 0 ml 08/13/21 13:35 Dextrose 10% *Hypoglycemia IV PRN PRN Hypoglycemia Heparin Sodium (Porcine) 5,000 unit 08/13/21 22:00 08/14/21 09:00 Heparin 5,000 Unit/1 Ml Vial SUB-Q 5,000 unit Q12HR RANJAN Administration Hydromorphone HCl 0.5 mg 08/13/21 13:24 08/14/21 05:27 Hydromorphone 1 Mg/1 Ml Inj IV 0.5 mg Q3H PRN Administration Pain, Moderate (4-6) Sodium Chloride 1,000 mls @ 125 mls/hr 08/13/21 13:15 08/13/21 15:51 Nacl 0.9% 1000 Ml IV 125 mls/hr DIRECT RANJAN Administration Morphine Sulfate 2 mg 08/13/21 13:24 08/14/21 08:44 Morphine 2 Mg/1 Ml Inj IV 2 mg Q4H PRN Administration Pain, Moderate (4-6) Ondansetron HCl 4 mg 08/13/21 13:33 08/13/21 15:50 Ondansetron 4 Mg/2 Ml Inj IV 4 mg Q6H PRN Administration Nausea And Vomiting Sodium Chloride 10 ml 08/13/21 22:00 08/14/21 09:00 Sodium Chloride 0.9% 10 Ml Flush Syringe IV 10 ml BID RANJAN Administration Sodium Chloride 10 ml 08/13/21 13:24 Sodium Chloride 0.9% 10 Ml Flush Syringe IV PRN PRN LINE FLUSH
[2021-08-14] MEDS: SODIUM CHLORIDE 0.9% 1000 ML 1,000 ML IV SCH ×2 (10:29→18:27)
[2021-08-14] MEDS: POLYETHYLENE GLYCOL 3350 17 GM POWDER PO SCH (14:15)
--- NOTE | 2021-08-14 16:48 | Progress Note ---
Assessment and Plan 50-year-old male with acute pancreatitis, and history of gallstones diagnosed at the DC CT abdomen and pelvis reviewed -pancreatitis without necrosis, evidence of infection, well organized collections. No gallstones seen. Pt stable. Lipase trending down 1664->583 Plan: 1. CLD, NPO p MN tonight 2. IVF - NS@125cc/hr 3. prn pain and nausea control 4. DVT ppx 5. CMP, lipase in am 6. U/s abd ordered - still pending. Called u/s but no answer 7. Based on history patient has a diagnosis of gallstone pancreatitis. Will review results of abdominal ultrasound. Patient will likely require cholecystectomy during this admission. I discussed this with him in detail. I explained that cholecystectomy will be scheduled once the lipase is close to normal indicating pancreatitis is improving. The patient understands. Possible OR tomorrow afternoon if lipase continues to improve. Thank you. Please call with any questions or concerns. Evaluation and treatment of this patient was during the time of the national and state emergency arising from COVID19 coronavirus pandemic. Treatment and procedures performed meet the current and available best practice and guidelines for patient during the COVID pandemic. Subjective Date of service: 08/14/21 Narrative: Pt seen and examined. Feels better today with less abdominal pain. No nausea or vomiting. No fevers or chills. Objective Vital Signs - 12hr 08/14/21 08/14/21 08/14/21 05:00 05:13 13:55 Temperature 98.9 F Pulse Rate 80 82 Respiratory 16 17 Rate Blood Pressure 169/88 Blood Pressure 166/89 [Right] O2 Sat by Pulse 96 93 98 Oximetry 08/14/21 15:55 Temperature Pulse Rate Respiratory Rate Blood Pressure Blood Pressure [Right] O2 Sat by Pulse 96 Oximetry - General physical appearance Narrative Exam: Gen.: Awake, alert, oriented x3. No apparent distress ENT: Trachea midline. No lymphadenopathy. No scleral icterus or conjunctival pallor CV: S1, S2 present Respiratory: No audible wheezes Abdomen: Soft, mildly distended, epigastric tenderness to palpation. Nontender. No rebound, rigidity, guarding Extremities: No clubbing, cyanosis, edema - Labs 08/14/21 05:07 08/14/21 05:07 Diabetes panel 08/14/21 08/14/21 Range/Units 05:07 05:07 Sodium 139 (137-145) mmol/L Potassium 4.1 (3.6-5.0) mmol/L Chloride 102.0 (98-107) mmol/L Carbon Dioxide 24 (22-30) mmol/L BUN 10 (9-20) mg/dL Creatinine 0.8 (0.8-1.3) mg/dL Glucose 112 H (75-100) mg/dL Calcium 9.4 (8.4-10.2) mg/dL AST 75 H (5-40) units/L ALT 221 H (7-56) units/L Alkaline Phosphatase 102 (35-129) units/L Total Protein 6.9 (6.3-8.2) g/dL Albumin 4.1 (3.9-5) g/dL Triglycerides 84 (2-149) mg/dL Calcium panel 08/14/21 Range/Units 05:07 Calcium 9.4 (8.4-10.2) mg/dL Albumin 4.1 (3.9-5) g/dL Pituitary panel 08/14/21 Range/Units 05:07 Sodium 139 (137-145) mmol/L Potassium 4.1 (3.6-5.0) mmol/L Chloride 102.0 (98-107) mmol/L Carbon Dioxide 24 (22-30) mmol/L BUN 10 (9-20) mg/dL Creatinine 0.8 (0.8-1.3) mg/dL Glucose 112 H (75-100) mg/dL Calcium 9.4 (8.4-10.2) mg/dL Adrenal panel 08/14/21 Range/Units 05:07 Sodium 139 (137-145) mmol/L Potassium 4.1 (3.6-5.0) mmol/L Chloride 102.0 (98-107) mmol/L Carbon Dioxide 24 (22-30) mmol/L BUN 10 (9-20) mg/dL Creatinine 0.8 (0.8-1.3) mg/dL Glucose 112 H (75-100) mg/dL Calcium 9.4 (8.4-10.2) mg/dL Total Bilirubin 0.70 (0.1-1.2) mg/dL AST 75 H (5-40) units/L ALT 221 H (7-56) units/L Alkaline Phosphatase 102 (35-129) units/L Total Protein 6.9 (6.3-8.2) g/dL Albumin 4.1 (3.9-5) g/dL
[2021-08-15] MEDS: SODIUM CHLORIDE 0.9% 1000 ML 1,000 ML IV SCH ×3 (02:30→22:39)
[2021-08-15] MEDS: MORPHINE 2 MG/1 ML INJ IV PRN ×2 (04:02→10:50)
[2021-08-15 07:13] LABS: INR 0.94 (0.87-1.13)
[2021-08-15 07:15] LABS: Basophils % (Auto) 0.4 % (0.0-1.8); Eosinophils % (Auto) 0.3 % (0.0-4.3); Hematocrit 37.5 % (35.5-45.6); Hemoglobin 12.5 gm/dl (11.8-15.2); Lymphocytes # (Auto) 0.7 K/mm3 (1.2-5.4); Lymphocytes % (Auto) 7.8 % (13.4-35.0); Mean Corpuscular HGB Conc 33 % (32-34); Mean Corpuscular Volume 88 fl (84-94); Monocytes # (Auto) 1.1 K/mm3 (0.0-0.8); Monocytes % (Auto) 11.7 % (0.0-7.3); Platelet Count 165 K/mm3 (140-440); Red Blood Count 4.28 M/mm3 (3.65-5.03); Red Cell Distribution Width 14.1 % (13.2-15.2)
[2021-08-15 07:31] LABS: Alanine Aminotransferase 122 units/L (7-56); Albumin 3.6 g/dL (3.9-5); BUN/Creatinine Ratio 10; Blood Urea Nitrogen 8 mg/dL (9-20); Calcium 9.1 mg/dL (8.4-10.2); Hemolysis Index 6
[2021-08-15] MEDS: HYDROmorphone 1 MG/1 ML INJ IV PRN ×2 (07:32→14:13)
--- NOTE | 2021-08-15 09:09 | Anesthesia Consultation ---
Anesthesia Consult and Med Hx - Airway Anesthetic Teeth Evaluation: Good ROM Head & Neck: Adequate Mental/Hyoid Distance: Adequate Mallampati Class: Class II Intubation Access Assessment: Probably Good - Pulmonary Exam CTA: Yes - Cardiac Exam Cardiac Exam: RRR - Pre-Operative Health Status ASA Pre-Surgery Classification: ASA2 Proposed Anesthetic Plan: General - Pulmonary Hx Smoking: No Hx Asthma: No COPD: No Hx Pneumonia: No - Cardiovascular System Hx Hypertension: Yes - Central Nervous System Hx Neuromuscular Disorder: No (arthritis - knees) Hx Seizures: No CVA: No Hx Psychiatric Problems: No - Gastrointestinal Hx Gastroesophageal Reflux Disease: No - Endocrine Hx End Stage Renal Disease: No - Hematic Hx Anemia: No Hx Sickle Cell Disease: No - Other Systems Hx Alcohol Use: No Hx Substance Use: No Hx Cancer: No Hx Obesity: No - Additional Comments Anesthesia Medical History Comments: no hx of anesthesia complications
--- NOTE | 2021-08-15 09:09 | Anesthesia Day of Surgery ---
Anesthesia Day of Surgery - Day of Surgery Patient Examined: Yes Patient H&P Reviewed: Yes Patient is NPO: Yes
--- NOTE | 2021-08-15 09:35 | Ultrasound Report ---
ULTRASOUND ABDOMEN, COMPLETE INDICATION: pancreatitis, possible gallstones. COMPARISON: No relevant prior imaging study available. FINDINGS: Pancreas: Poorly visualized from overlying bowel gas. Abdominal Aorta: No significant abnormality. IVC: No significant abnormality. Liver: No significant abnormality. Normal hepatopedal blood flow in the main portal vein. Gallbladder: Multiple gallstones with thickened gallbladder wall measuring up to 3 mm in thickness. Bile ducts: No significant abnormality. Common bile duct measures 2 mm. Kidneys: Right: No significant abnormality. Left: No significant abnormality. Spleen: No significant abnormality. Free fluid: Mild ascites of the upper abdomen. Small left pleural effusion.. Additional Findings: None. IMPRESSION: Gallbladder wall thickening with gallstones. These findings could be seen with acute cholecystitis ho wever the history of pancreatitis could also cause mild gallbladder wall thickening. If there is clin ical concern for cholecystitis a HIDA scan would be useful for further evaluation. Signer Name: Chon Mayo MD Signed: 08/15/2021 9:31 AM Workstation Name: [id number]
[2021-08-15] MEDS: POLYETHYLENE GLYCOL 3350 17 GM POWDER PO SCH (10:52)
[2021-08-15] MEDS: HEPARIN 5,000 UNIT/1 ML VIAL SUB-Q SCH ×2 (10:52→21:59)
--- NOTE | 2021-08-15 11:09 | Progress Note ---
Assessment and Plan Assessment and plan: #Gallstone pancreatitis #Leukocytosis WBC 12.9 --> likely secondary to pancreatitis and not infectious etiology Lipase 1664--> 583 CT abdomen/pelvis revealing for acute pancreatitis. Patient has been diagnosed with with this before; however, cholecystectomy was unable to be performed at that time due to unavailability in the OR. It was suggested to have the procedure performed in the outpatient setting, but this was not performed. General surgery consulted; appreciate recs. Planning to undergo laparoscopic cholecystectomy today (08/15/2021). Continue n.p.o. status. Continue IV fluid resuscitation. Continue analgesics and antiemetics. Pending right upper quadrant ultrasound Continue to monitor #Elevated transaminasesimproving AST 242, ALT 381 Likely secondary to gallstone pancreatitis Monitor with CMP #Hypertension - home medications: Amlodipine 5 mg daily, HCTZ 12.5 mg daily - current medications: Restarting amlodipine 5 mg daily, HCTZ 12.5 mg daily - SBP goal <160 and DBP goal <90 while inpatient - continue to monitor #Advanced care planning -Disease education conducted, care plan discussed, diagnoses discussed, prognosis discussed, and patient acknowledges understanding with care plan -Time: +30 min Disposition Plan: Continue medical management Total Time Spent with Patient (Minutes): 30 minutes History Interval history: No acute events overnight. Hospitalist Physical - Constitutional Vitals: Temp Pulse Resp BP Pulse Ox 99.5 F 72 17 169/92 96 08/15/21 03:50 08/15/21 03:50 08/15/21 04:32 08/15/21 03:50 08/15/21 03:50 General appearance: Present: no acute distress, well-nourished - EENT Eyes: Present: PERRL, EOM intact ENT: hearing intact, clear oral mucosa, dentition normal - Neck Neck: Present: supple, normal ROM - Respiratory Respiratory effort: normal Respiratory: bilateral: CTA - Cardiovascular Rhythm: regular Heart Sounds: Present: S1 & S2 - Extremities Extremities: no ischemia, pulses intact, pulses symmetrical, No edema, normal temperature, normal color, Full ROM Peripheral Pulses: within normal limits - Abdominal General gastrointestinal: soft, tender, non-distended, normal bowel sounds Localized gastrointestinal: tender: RUQ - Integumentary Integumentary: Present: clear, warm, dry - Psychiatric Psychiatric: appropriate mood/affect, intact judgment & insight, memory intact, cooperative - Neurologic Neurologic: CNII-XII intact, moves all extremities - Allied Health Allied health notes reviewed: nursing Results - Labs CBC & Chem 7: 08/15/21 06:42 08/15/21 06:42 Labs: Laboratory Last Values WBC 9.0 K/mm3 (4.5-11.0) 08/15/21 06:42 RBC 4.28 M/mm3 (3.65-5.03) 08/15/21 06:42 Hgb 12.5 gm/dl (11.8-15.2) 08/15/21 06:42 Hct 37.5 % (35.5-45.6) 08/15/21 06:42 MCV 88 fl (84-94) 08/15/21 06:42 MCH 29 pg (28-32) 08/15/21 06:42 MCHC 33 % (32-34) 08/15/21 06:42 RDW 14.1 % (13.2-15.2) 08/15/21 06:42 Plt Count 165 K/mm3 (140-440) 08/15/21 06:42 Lymph % (Auto) 7.8 % (13.4-35.0) L 08/15/21 06:42 [place] % (Auto) 11.7 % (0.0-7.3) H 08/15/21 06:42 Eos % (Auto) 0.3 % (0.0-4.3) 08/15/21 06:42 Baso % (Auto) 0.4 % (0.0-1.8) 08/15/21 06:42 Lymph # (Auto) 0.7 K/mm3 (1.2-5.4) L 08/15/21 06:42 [place] # (Auto) 1.1 K/mm3 (0.0-0.8) H 08/15/21 06:42 Eos # (Auto) 0.0 K/mm3 (0.0-0.4) 08/15/21 06:42 Baso # (Auto) 0.0 K/mm3 (0.0-0.1) 08/15/21 06:42 Add Manual Diff Complete 08/13/21 09:09 Total Counted 100 08/13/21 09:09 Seg Neutrophils % 79.8 % (40.0-70.0) H 08/15/21 06:42 Seg Neuts % (Manual) 96.0 % (40.0-70.0) H 08/13/21 09:09 Band Neutrophils % 0 % 08/13/21 09:09 Lymphocytes % (Manual) 2.0 % (13.4-35.0) L 08/13/21 09:09 Reactive Lymphs % (Man) 0 % 08/13/21 09:09 Monocytes % (Manual) 2.0 % (0.0-7.3) 08/13/21 09:09 Eosinophils % (Manual) 0 % (0.0-4.3) 08/13/21 09:09 Basophils % (Manual) 0 % (0.0-1.8) 08/13/21 09:09 Metamyelocytes % 0 % 08/13/21 09:09 Myelocytes % 0 % 08/13/21 09:09 Promyelocytes % 0 % 08/13/21 09:09 Blast Cells % 0 % 08/13/21 09:09 Nucleated RBC % Not Reportable 08/13/21 09:09 Seg Neutrophils # 7.2 K/mm3 (1.8-7.7) 08/15/21 06:42 Seg Neutrophils # Man 10.5 K/mm3 (1.8-7.7) H 08/13/21 09:09 Band Neutrophils # 0.0 K/mm3 08/13/21 09:09 Lymphocytes # (Manual) 0.2 K/mm3 (1.2-5.4) L 08/13/21 09:09 Abs React Lymphs (Man) 0.0 K/mm3 08/13/21 09:09 Monocytes # (Manual) 0.2 K/mm3 (0.0-0.8) 08/13/21 09:09 Eosinophils # (Manual) 0.0 K/mm3 (0.0-0.4) 08/13/21 09:09 Basophils # (Manual) 0.0 K/mm3 (0.0-0.1) 08/13/21 09:09 Metamyelocytes # 0.0 K/mm3 08/13/21 09:09 Myelocytes # 0.0 K/mm3 08/13/21 09:09 Promyelocytes # 0.0 K/mm3 08/13/21 09:09 Blast Cells # 0.0 K/mm3 08/13/21 09:09 WBC Morphology Not Reportable 08/13/21 09:09 Hypersegmented Neuts Not Reportable 08/13/21 09:09 Hyposegmented Neuts Not Reportable 08/13/21 09:09 Hypogranular Neuts Not Reportable 08/13/21 09:09 Smudge Cells Not Reportable 08/13/21 09:09 Toxic Granulation Not Reportable 08/13/21 09:09 Toxic Vacuolation Not Reportable 08/13/21 09:09 Dohle Bodies Not Reportable 08/13/21 09:09 Pelger-Huet Anomaly Not Reportable 08/13/21 09:09 Chucky Rods Not Reportable 08/13/21 09:09 Platelet Estimate Consistent w auto 08/13/21 09:09 Clumped Platelets Not Reportable 08/13/21 09:09 Plt Clumps, EDTA Not Reportable 08/13/21 09:09 Large Platelets Few 08/13/21 09:09 Giant Platelets Not Reportable 08/13/21 09:09 Platelet Satelliting Not Reportable 08/13/21 09:09 Plt Morphology Comment Not Reportable 08/13/21 09:09 RBC Morphology Normal 08/13/21 09:09 Dimorphic RBCs Not Reportable 08/13/21 09:09 Polychromasia Not Reportable 08/13/21 09:09 Hypochromasia Not Reportable 08/13/21 09:09 Poikilocytosis Not Reportable 08/13/21 09:09 Anisocytosis Not Reportable 08/13/21 09:09 Microcytosis Not Reportable 08/13/21 09:09 Macrocytosis Not Reportable 08/13/21 09:09 Spherocytes Not Reportable 08/13/21 09:09 Pappenheimer Bodies Not Reportable 08/13/21 09:09 Sickle Cells Not Reportable 08/13/21 09:09 Target Cells Not Reportable 08/13/21 09:09 Tear Drop Cells Not Reportable 08/13/21 09:09 Ovalocytes Not Reportable 08/13/21 09:09 Helmet Cells Not Reportable 08/13/21 09:09 [place]ayor[place] Bodies Not Reportable 08/13/21 09:09 [place] Rings Not Reportable 08/13/21 09:09 [place] Cells Not Reportable 08/13/21 09:09 Bite Cells Not Reportable 08/13/21 09:09 Crenated Cell Not Reportable 08/13/21 09:09 Elliptocytes Not Reportable 08/13/21 09:09 Acanthocytes (Spur) Not Reportable 08/13/21 09:09 Rouleaux Not Reportable 08/13/21 09:09 Hemoglobin C Crystals Not Reportable 08/13/21 09:09 Schistocytes Not Reportable 08/13/21 09:09 Malaria parasites Not Reportable 08/13/21 09:09 Florencio Bodies Not Reportable 08/13/21 09:09 Hem Pathologist Commnt No 08/13/21 09:09 PT 13.6 Sec. (12.2-14.9) 08/15/21 06:42 INR 0.94 (0.87-1.13) 08/15/21 06:42 Sodium 138 mmol/L (137-145) 08/15/21 06:42 Potassium 3.7 mmol/L (3.6-5.0) 08/15/21 06:42 Chloride 101.5 mmol/L (98-107) 08/15/21 06:42 Carbon Dioxide 25 mmol/L (22-30) 08/15/21 06:42 Anion Gap 15 mmol/L 08/15/21 06:42 BUN 8 mg/dL (9-20) L 08/15/21 06:42 Creatinine 0.8 mg/dL (0.8-1.3) 08/15/21 06:42 Estimated GFR > 60 ml/min 08/15/21 06:42 BUN/Creatinine Ratio 10 % 08/15/21 06:42 Glucose 106 mg/dL (75-100) H 08/15/21 06:42 Calcium 9.1 mg/dL (8.4-10.2) 08/15/21 06:42 Total Bilirubin 1.10 mg/dL (0.1-1.2) 08/15/21 06:42 AST 28 units/L (5-40) 08/15/21 06:42 ALT 122 units/L (7-56) H 08/15/21 06:42 Alkaline Phosphatase 80 units/L (35-129) 08/15/21 06:42 Total Protein 6.3 g/dL (6.3-8.2) 08/15/21 06:42 Albumin 3.6 g/dL (3.9-5) L 08/15/21 06:42 Albumin/Globulin Ratio 1.3 % 08/15/21 06:42 Triglycerides 84 mg/dL (2-149) 08/14/21 05:07 Amylase 645 units/L (27-131) H 08/14/21 05:07 Lipase 58 units/L (13-60) 08/15/21 06:42 Navarrete/IV: Voiding Method Toilet Active Medications - Current Medications Current Medications: Generic Name Dose Route Start Last Admin Trade Name Freq PRN Reason Stop Dose Admin Acetaminophen 650 mg 08/13/21 13:24 Acetaminophen 325 Mg Tab PO Q4H PRN Pain MILD(1-3)/Fever >100.5/OSPINA Bisacodyl 10 mg 08/14/21 13:47 Bisacodyl 10 Mg Rect Supp NV QDAY PRN Constipation Dextrose 0 ml 08/13/21 13:35 Dextrose 10% *Hypoglycemia IV PRN PRN Hypoglycemia Heparin Sodium (Porcine) 5,000 unit 08/13/21 22:00 08/15/21 10:52 Heparin 5,000 Unit/1 Ml Vial SUB-Q Not Given Q12HR [facility] Hydromorphone HCl 0.5 mg 08/13/21 13:24 08/15/21 07:32 Hydromorphone 1 Mg/1 Ml Inj IV 0.5 mg Q3H PRN Administration Pain, Moderate (4-6) Sodium Chloride 1,000 mls @ 125 mls/hr 08/13/21 13:15 08/15/21 11:02 Nacl 0.9% 1000 Ml IV 125 mls/hr DIRECT RANJAN Administration Morphine Sulfate 2 mg 08/13/21 13:24 08/15/21 04:02 Morphine 2 Mg/1 Ml Inj IV 2 mg Q4H PRN Administration Pain, Moderate (4-6) Nifedipine 30 mg 08/15/21 16:00 Nifedipine Xl 30 Mg Tab PO QDAY [facility] Ondansetron HCl 4 mg 08/13/21 13:33 08/13/21 15:50 Ondansetron 4 Mg/2 Ml Inj IV 4 mg Q6H PRN Administration Nausea And Vomiting Polyethylene Glycol 17 gm 08/14/21 13:47 08/15/21 10:52 Polyethylene Glycol 3350 17 Gm Powder PO Not Given QDAY RANJAN Sodium Chloride 10 ml 08/13/21 22:00 08/15/21 11:02 Sodium Chloride 0.9% 10 Ml Flush Syringe IV 10 ml BID RANJAN Administration Sodium Chloride 10 ml 08/13/21 13:24 Sodium Chloride 0.9% 10 Ml Flush Syringe IV PRN PRN LINE FLUSH
--- NOTE | 2021-08-15 13:20 | Event Note ---
Date: 08/15/21 Pt chart reviewed. He feels well today. Afebrile. White count 9 from 12.9, bilirubin 1.1, LFTs trending down, lipase 58 from 583 from 1664. Will plan for Lap sejal today. I discussed this with the patient along with all risks, benefits, alternatives to surgery. All risks including but not limited to infection, bleeding, injury to surrounding structures, need for additional surgery or procedures, unforeseen complications discussed with the patient. All questions answered and consent obtained. Patient is n.p.o. Preop antibiotics ordered.
[2021-08-15] MEDS ORDERED: ceFAZolin/STERILE WATER 2 GM/20 ML SYRINGE IV NR (13:21)
[2021-08-15] MEDS ORDERED: HYDROmorphone 1 MG/1 ML INJ ONE (14:28)
[2021-08-15] MEDS ORDERED: ROCURONIUM 50 MG/5 ML INJ IV ONE (14:28)
[2021-08-15] MEDS ORDERED: propofoL 200 MG/20 ML VIAL IV ONE (14:28)
[2021-08-15] MEDS ORDERED: LIDOCAINE MPF (2%) 20 MG/1 ML VIAL 5 ML ONE (14:30)
[2021-08-15] MEDS ORDERED: LIDOCAINE (1%) 10 MG/1 ML VIAL 20 ML MDV ONE (14:45)
[2021-08-15] MEDS ORDERED: BUPIVACAINE/PF (0.5%) 5 MG/1 ML 30 ML VIAL INFILTRATI ONE ×2 (14:46→15:33)
[2021-08-15] MEDS ORDERED: LACTATED RINGERS 1,000 ML ONE ×2 (15:03→16:41)
[2021-08-15] MEDS ORDERED: WATER FOR IRRIG STERILE 1,500 ML BOTTLE IR ONE (15:33)
[2021-08-15] MEDS ORDERED: LIDOCAINE (1%) 10 MG/1 ML VIAL 20 ML MDV INFILTRATI ONE (15:33)
[2021-08-15] MEDS ORDERED: ceFAZolin 1 GM VIAL ONE (15:38)
[2021-08-15] MEDS ORDERED: NIFEdipine XL 30 MG TAB PO SCH (16:00)
[2021-08-15] MEDS ORDERED: ONDANSETRON 4 MG/2 ML INJ ONE (16:38)
[2021-08-15] MEDS ORDERED: GLYCOPYRROLATE 0.4 MG/2 ML INJ ONE (16:38)
[2021-08-15] MEDS ORDERED: NEOSTIGMINE 10MG/10 ML INJ MDV ONE (16:38)
[2021-08-15] MEDS ORDERED: KETOROLAC 30 MG/1 ML INJ ONE (16:38)
--- NOTE | 2021-08-15 17:31 | Operative Report ---
Operative Report Operative Report: Date of operation: 08/15/2021 Preoperative diagnosis: Gallstone pancreatitis postOperative diagnoses: Same as above Procedure performed: Laparoscopic cholecystectomy Surgeon: Brie Payne DO Athletic Coordinator: MD Ilan Anesthesia: Gen. endotracheal anesthesia, local Findings: Omental adhesions to the gallbladder. Thickening at gallbladder neck with small stones in the neck of the gallbladder. Specimen: Gallbladder Estimated blood loss: 30cc Complications: None Disposition: Stable to PACU HPI an indication: 50-year-old male who presented to the emergency room with sharp, constant, epigastric abdominal pain with nausea and vomiting. Patient had a history of gallstone pancreatitis about 1 week prior which is diagnosed at the [place]. He was treated and scheduled as an outpatient for cholecystectomy in October. The patient's pain recurred and he presented to [facility]. She was found to have pancreatitis on CT scan and gallstones with mild gallbladder wall thickening and normal bile ducts on ultrasound. It was recommended that the patient undergo cholecystectomy this admission once the pancreatitis improved. Once his lipase improved with aggressive IV fluid hydration and bowel rest, the patient was scheduled for cholecystectomy. All risks, benefits, alternatives to surgery were discussed and questions answered. Consent was obtained for laparoscopic, possible open cholecystectomy, possible cholangiogram. Procedure in detail: The patient was identified in the preoperative area and taken back to the operating room, placed on the operating room table in supine position. After anesthesia was induced, the abdomen was prepped and draped in usual sterile fashion and timeout was performed. Local anesthetic was infiltrated into all of the skin incision sites. A 5 mm supraumbilical incision was made through which a Veress needle. The Veress needle positioning was confirmed using saline drop test and the abdomen insufflated to 15 mmHg without incident. The Veress needle was removed and a 5 mm Optiview trocar placed through the incision. The abdomen was inspected and there was no underlying injury to any abdominal structures. The patient was placed in reverse Trendelenburg and tilted to the left. An additional 12 mm subxiphoid and 2 right upper quadrant 5 mm trochars were placed under direct visualization. The gallbladder was visualized in the fundus retracted above the liver. There were omental adhesions to the gallbladder which were dissected with hook electrocautery. The neck of the gallbladder was encountered and the infundibulum was grasped and retracted laterally. There was edema and thickening of the gallbladder neck. The cystic duct and artery were then carefully skeletonized. The lateral and medial peritoneal attachments to the gallbladder were dissected with electrocautery. The cystic artery and duct were the only 2 structures seen entering the gallbladder. There was a palpable stone at the neck of the gallbladder. 2 clips were placed on the proximal aspect of the cystic artery and 1 distally this was transected in between the clips using hook electrocautery. 3 clips were placed on the proximal aspect of the cystic duct and this was transected just distal to the clips using EndoShears. The gallbladder was dissected from the liver bed using hook electrocautery and then placed into an Endo Catch bag. It was removed from the abdomen via the 12 mm port. The gallbladder fossa was then inspected and there was no identifiable bleeding or bile leakage. Hemostasis was ensured. The clips on the cystic duct and artery were visualized and intact. The patient was then placed into neutral position. The gallbladder fossa and Morison's pouch were irrigated and all of the irrigant returned clear. The 12 mm port fascia was closed with interrupted 0 Vicryl suture x2 using the Nikolay Wilhelm device. The remaining ports were removed under direct visualization. Skin incisions were closed with 4-0 Monocryl subcuticular stitches and skin glue. All skin incisions were once again infiltrated with local anesthetic. The gallbladder was examined on the back table. Only 1 structure was seen entering the gallbladder which was a cystic duct. There were tiny stones in the neck of the gallbladder. At the end case all sponge, instrument, sharp counts were correct 2. The patient was awoken from anesthesia, extubated, and taken to PACU in stable condition. I called the patient's Sister Gianna who is listed as his next of kin, but there was no answer.
--- NOTE | 2021-08-15 18:31 | Post Anesthesia Evaluation ---
- Post Anesthesia Evaluation Patient Participated: Yes Airway Patent: Yes Stable Respiratory Function: Yes Nausea/Vomiting: No Temp > 96.8F: Yes Pain Manageable: Yes Adequeate Hydration: Yes Anesthesia Complications: No Block Receding Appropriately: Not Applicable Patient on Ventilator: No
[2021-08-15] MEDS: amLODIPine 5 MG TAB PO SCH (18:45)
[2021-08-15] MEDS: hydroCHLOROthiazide 12.5 MG CAP PO SCH (18:45)
[2021-08-15] MEDS: AMITRIPTYLINE 10 MG TAB PO SCH (21:59)
[2021-08-15] MEDS ORDERED: PRAZOSIN HCL 2 MG PO SCH (22:00)
[2021-08-15] MEDS: HYDROcodone/ACETAMINOPHEN 5-325 MG TAB PO PRN (22:05)
[2021-08-15] MEDS: PRAZOSIN 1 MG CAP PO SCH (22:09)
[2021-08-16] MEDS: MORPHINE 2 MG/1 ML INJ IV PRN (05:04)
[2021-08-16 06:18] LABS: Basophils % (Auto) 0.5 % (0.0-1.8); Eosinophils % (Auto) 0.2 % (0.0-4.3); Hematocrit 35.7 % (35.5-45.6); Hemoglobin 11.9 gm/dl (11.8-15.2); Lymphocytes # (Auto) 0.7 K/mm3 (1.2-5.4); Lymphocytes % (Auto) 8.4 % (13.4-35.0); Mean Corpuscular HGB Conc 33 % (32-34); Mean Corpuscular Volume 88 fl (84-94); Monocytes # (Auto) 0.8 K/mm3 (0.0-0.8); Monocytes % (Auto) 8.9 % (0.0-7.3); Platelet Count 158 K/mm3 (140-440); Red Blood Count 4.07 M/mm3 (3.65-5.03); Red Cell Distribution Width 14.4 % (13.2-15.2)
[2021-08-16 06:37] LABS: Alanine Aminotransferase 86 units/L (7-56); Albumin 3.5 g/dL (3.9-5); BUN/Creatinine Ratio 9; Blood Urea Nitrogen 7 mg/dL (9-20); Calcium 8.8 mg/dL (8.4-10.2); Hemolysis Index 6
[2021-08-16] MEDS: HYDROcodone/ACETAMINOPHEN 5-325 MG TAB PO PRN ×4 (09:43→22:58)
[2021-08-16] MEDS: HEPARIN 5,000 UNIT/1 ML VIAL SUB-Q SCH ×2 (09:49→21:26)
[2021-08-16] MEDS: hydroCHLOROthiazide 12.5 MG CAP PO SCH (09:50)
[2021-08-16] MEDS: POLYETHYLENE GLYCOL 3350 17 GM POWDER PO SCH (09:50)
[2021-08-16] MEDS: amLODIPine 5 MG TAB PO SCH (09:50)
[2021-08-16] MEDS: SERTRALINE 100 MG TAB PO SCH (09:50)
[2021-08-16] MEDS ORDERED: PHENOL 1.4% 177 ML BOTTLE MM PRN (10:04)
--- NOTE | 2021-08-16 14:10 | Progress Note ---
Assessment and Plan Assessment and plan: #Gallstone pancreatitis- resolving #Leukocytosis-resolved WBC 12.9 --> likely secondary to pancreatitis and not infectious etiology Lipase 1664--> 583 --> 58 CT abdomen/pelvis revealing for acute pancreatitis. Patient has been diagnosed with with this before; however, cholecystectomy was unable to be performed at that time due to unavailability in the OR. It was suggested to have the procedure performed in the outpatient setting, but this was not performed. General surgery following, assistance appreciated s/p undergo laparoscopic cholecystectomy 08/15/2021 soft GI diet today, will advance as tolerated. Continue to monitor #Elevated liver enzymesimproving AST/ALT improving, normalizing Likely secondary to gallstone pancreatitis Monitor with CMP #Hypertension - home medications: Amlodipine 5 mg daily, HCTZ 12.5 mg daily - current medications:amlodipine 5 mg daily, HCTZ 12.5 mg daily - SBP goal <160 and DBP goal <90 while inpatient #Advanced care planning -Disease education conducted, care plan discussed, diagnoses discussed, prognosis discussed, and patient acknowledges understanding with care plan -Time: +30 min History Interval history: Acute events overnight. Patient continues to have abdominal pain. He has been ambulating without difficulty. Denies chest pain, nausea, vomiting and d iarrhea. Hospitalist Physical - Physical exam Narrative exam: GENERAL: Well-developed well-nourished. In no acute distress. HEENT: Normocephalic. Atraumatic. NECK: Supple. CHEST/LUNGS: CTAB on room air HEART/CARDIOVASCULAR: RRR. No murmur, rubs or gallops appreciated. ABDOMEN: Surgical scars intact. +BS. ND. Mildly tender to palpation. SKIN: No rashes noted. NEURO: No focal motor deficit. Follows all commands. MUSCULOSKELETAL: No joint effusion EXTREMITIES: No cyanosis, clubbing or edema. PSYCH: Cooperative. - Constitutional Vitals: Temp Pulse Resp BP Pulse Ox 99.2 F 89 16 134/84 90 08/16/21 11:19 08/16/21 11:19 08/16/21 11:19 08/16/21 11:19 08/16/21 11:19 General appearance: Present: no acute distress, well-nourished Results - Labs CBC & Chem 7: 08/16/21 05:27 08/16/21 05:27 Labs: Laboratory Last Values WBC 8.8 K/mm3 (4.5-11.0) 08/16/21 05:27 RBC 4.07 M/mm3 (3.65-5.03) 08/16/21 05:27 Hgb 11.9 gm/dl (11.8-15.2) 08/16/21 05:27 Hct 35.7 % (35.5-45.6) 08/16/21 05:27 MCV 88 fl (84-94) 08/16/21 05:27 MCH 29 pg (28-32) 08/16/21 05:27 MCHC 33 % (32-34) 08/16/21 05:27 RDW 14.4 % (13.2-15.2) 08/16/21 05:27 Plt Count 158 K/mm3 (140-440) 08/16/21 05:27 Lymph % (Auto) 8.4 % (13.4-35.0) L 08/16/21 05:27 [place] % (Auto) 8.9 % (0.0-7.3) H 08/16/21 05:27 Eos % (Auto) 0.2 % (0.0-4.3) 08/16/21 05:27 Baso % (Auto) 0.5 % (0.0-1.8) 08/16/21 05:27 Lymph # (Auto) 0.7 K/mm3 (1.2-5.4) L 08/16/21 05:27 [place] # (Auto) 0.8 K/mm3 (0.0-0.8) 08/16/21 05:27 Eos # (Auto) 0.0 K/mm3 (0.0-0.4) 08/16/21 05:27 Baso # (Auto) 0.0 K/mm3 (0.0-0.1) 08/16/21 05:27 Add Manual Diff Complete 08/13/21 09:09 Total Counted 100 08/13/21 09:09 Seg Neutrophils % 82.0 % (40.0-70.0) H 08/16/21 05:27 Seg Neuts % (Manual) 96.0 % (40.0-70.0) H 08/13/21 09:09 Band Neutrophils % 0 % 08/13/21 09:09 Lymphocytes % (Manual) 2.0 % (13.4-35.0) L 08/13/21 09:09 Reactive Lymphs % (Man) 0 % 08/13/21 09:09 Monocytes % (Manual) 2.0 % (0.0-7.3) 08/13/21 09:09 Eosinophils % (Manual) 0 % (0.0-4.3) 08/13/21 09:09 Basophils % (Manual) 0 % (0.0-1.8) 08/13/21 09:09 Metamyelocytes % 0 % 08/13/21 09:09 Myelocytes % 0 % 08/13/21 09:09 Promyelocytes % 0 % 08/13/21 09:09 Blast Cells % 0 % 08/13/21 09:09 Nucleated RBC % Not Reportable 08/13/21 09:09 Seg Neutrophils # 7.2 K/mm3 (1.8-7.7) 08/16/21 05:27 Seg Neutrophils # Man 10.5 K/mm3 (1.8-7.7) H 08/13/21 09:09 Band Neutrophils # 0.0 K/mm3 08/13/21 09:09 Lymphocytes # (Manual) 0.2 K/mm3 (1.2-5.4) L 08/13/21 09:09 Abs React Lymphs (Man) 0.0 K/mm3 08/13/21 09:09 Monocytes # (Manual) 0.2 K/mm3 (0.0-0.8) 08/13/21 09:09 Eosinophils # (Manual) 0.0 K/mm3 (0.0-0.4) 08/13/21 09:09 Basophils # (Manual) 0.0 K/mm3 (0.0-0.1) 08/13/21 09:09 Metamyelocytes # 0.0 K/mm3 08/13/21 09:09 Myelocytes # 0.0 K/mm3 08/13/21 09:09 Promyelocytes # 0.0 K/mm3 08/13/21 09:09 Blast Cells # 0.0 K/mm3 08/13/21 09:09 WBC Morphology Not Reportable 08/13/21 09:09 Hypersegmented Neuts Not Reportable 08/13/21 09:09 Hyposegmented Neuts Not Reportable 08/13/21 09:09 Hypogranular Neuts Not Reportable 08/13/21 09:09 Smudge Cells Not Reportable 08/13/21 09:09 Toxic Granulation Not Reportable 08/13/21 09:09 Toxic Vacuolation Not Reportable 08/13/21 09:09 Dohle Bodies Not Reportable 08/13/21 09:09 Pelger-Huet Anomaly Not Reportable 08/13/21 09:09 Chucky Rods Not Reportable 08/13/21 09:09 Platelet Estimate Consistent w auto 08/13/21 09:09 Clumped Platelets Not Reportable 08/13/21 09:09 Plt Clumps, EDTA Not Reportable 08/13/21 09:09 Large Platelets Few 08/13/21 09:09 Giant Platelets Not Reportable 08/13/21 09:09 Platelet Satelliting Not Reportable 08/13/21 09:09 Plt Morphology Comment Not Reportable 08/13/21 09:09 RBC Morphology Normal 08/13/21 09:09 Dimorphic RBCs Not Reportable 08/13/21 09:09 Polychromasia Not Reportable 08/13/21 09:09 Hypochromasia Not Reportable 08/13/21 09:09 Poikilocytosis Not Reportable 08/13/21 09:09 Anisocytosis Not Reportable 08/13/21 09:09 Microcytosis Not Reportable 08/13/21 09:09 Macrocytosis Not Reportable 08/13/21 09:09 Spherocytes Not Reportable 08/13/21 09:09 Pappenheimer Bodies Not Reportable 08/13/21 09:09 Sickle Cells Not Reportable 08/13/21 09:09 Target Cells Not Reportable 08/13/21 09:09 Tear Drop Cells Not Reportable 08/13/21 09:09 Ovalocytes Not Reportable 08/13/21 09:09 Helmet Cells Not Reportable 08/13/21 09:09 Montemayor-Marissa Bodies Not Reportable 08/13/21 09:09 Gilbert Rings Not Reportable 08/13/21 09:09 [place] Cells Not Reportable 08/13/21 09:09 Bite Cells Not Reportable 08/13/21 09:09 Crenated Cell Not Reportable 08/13/21 09:09 Elliptocytes Not Reportable 08/13/21 09:09 Acanthocytes (Spur) Not Reportable 08/13/21 09:09 Rouleaux Not Reportable 08/13/21 09:09 Hemoglobin C Crystals Not Reportable 08/13/21 09:09 Schistocytes Not Reportable 08/13/21 09:09 Malaria parasites Not Reportable 08/13/21 09:09 Florencio Bodies Not Reportable 08/13/21 09:09 Hem Pathologist Commnt No 08/13/21 09:09 PT 13.6 Sec. (12.2-14.9) 08/15/21 06:42 INR 0.94 (0.87-1.13) 08/15/21 06:42 Sodium 136 mmol/L (137-145) L 08/16/21 05:27 Potassium 3.5 mmol/L (3.6-5.0) L 08/16/21 05:27 Chloride 100.2 mmol/L (98-107) 08/16/21 05:27 Carbon Dioxide 25 mmol/L (22-30) 08/16/21 05:27 Anion Gap 14 mmol/L 08/16/21 05:27 BUN 7 mg/dL (9-20) L 08/16/21 05:27 Creatinine 0.8 mg/dL (0.8-1.3) 08/16/21 05:27 Estimated GFR > 60 ml/min 08/16/21 05:27 BUN/Creatinine Ratio 9 % 08/16/21 05:27 Glucose 100 mg/dL (75-100) 08/16/21 05:27 Calcium 8.8 mg/dL (8.4-10.2) 08/16/21 05:27 Total Bilirubin 0.80 mg/dL (0.1-1.2) 08/16/21 05:27 AST 33 units/L (5-40) 08/16/21 05:27 ALT 86 units/L (7-56) H 08/16/21 05:27 Alkaline Phosphatase 72 units/L (35-129) 08/16/21 05:27 Total Protein 6.0 g/dL (6.3-8.2) L 08/16/21 05:27 Albumin 3.5 g/dL (3.9-5) L 08/16/21 05:27 Albumin/Globulin Ratio 1.4 % 08/16/21 05:27 Triglycerides 84 mg/dL (2-149) 08/14/21 05:07 Amylase 645 units/L (27-131) H 08/14/21 05:07 Lipase 58 units/L (13-60) 08/15/21 06:42 Navarrete/IV: Voiding Method Toilet Active Medications - Current Medications Current Medications: Generic Name Dose Route Start Last Admin Trade Name Freq PRN Reason Stop Dose Admin Acetaminophen 650 mg 08/13/21 13:24 Acetaminophen 325 Mg Tab PO Q4H PRN Pain MILD(1-3)/Fever >100.5/OSPINA Hydrocodone Bitart/Acetaminophen 1 each 08/15/21 17:21 08/16/21 13:17 Hydrocodone/Acetaminophen 5-325 Mg Tab PO 1 each Q4H PRN Administration Pain, Moderate (4-6) Amitriptyline HCl 10 mg 08/15/21 22:00 08/15/21 21:59 Amitriptyline 10 Mg Tab PO 10 mg QHS RANJAN Administration Amlodipine Besylate 5 mg 08/15/21 17:00 08/16/21 09:50 Amlodipine 5 Mg Tab PO 5 mg QDAY RANJAN Administration Bisacodyl 10 mg 08/14/21 13:47 Bisacodyl 10 Mg Rect Supp TN QDAY PRN Constipation Dextrose 0 ml 08/13/21 13:35 Dextrose 10% *Hypoglycemia IV PRN PRN Hypoglycemia Heparin Sodium (Porcine) 5,000 unit 08/13/21 22:00 08/16/21 09:49 Heparin 5,000 Unit/1 Ml Vial SUB-Q 5,000 unit Q12HR RANJAN Administration Hydrochlorothiazide 12.5 mg 08/15/21 17:00 08/16/21 09:50 Hydrochlorothiazide 12.5 Mg Cap PO 12.5 mg QDAY RANJAN Administration Sodium Chloride 1,000 mls @ 125 mls/hr 08/13/21 13:15 08/15/21 22:39 Nacl 0.9% 1000 Ml IV 125 mls/hr DIRECT RANJAN Administration Morphine Sulfate 2 mg 08/13/21 13:24 08/16/21 05:04 Morphine 2 Mg/1 Ml Inj IV 2 mg Q4H PRN Administration Pain , Severe (7-10) Ondansetron HCl 4 mg 08/13/21 13:33 08/13/21 15:50 Ondansetron 4 Mg/2 Ml Inj IV 4 mg Q6H PRN Administration Nausea And Vomiting Phenol 1 spray 08/16/21 10:04 Phenol 1.4% 177 Ml Bottle MM PRN PRN Sore Throat Polyethylene Glycol 17 gm 08/14/21 13:47 08/16/21 09:50 Polyethylene Glycol 3350 17 Gm Powder PO Not Given QDAY RANJAN Prazosin HCl 2 mg 08/15/21 22:00 08/15/21 22:09 Prazosin 1 Mg Cap PO 2 mg QHS RANJAN Administration Sertraline HCl 100 mg 08/16/21 10:00 08/16/21 09:50 Sertraline 100 Mg Tab PO Not Given QDAY RANJAN Sodium Chloride 10 ml 08/13/21 22:00 08/16/21 09:50 Sodium Chloride 0.9% 10 Ml Flush Syringe IV 10 ml BID RANJAN Administration Sodium Chloride 10 ml 08/13/21 13:24 Sodium Chloride 0.9% 10 Ml Flush Syringe IV PRN PRN LINE FLUSH Nutrition/Malnutrition Assess - Dietary Evaluation Nutrition/Malnutrition Findings: Nutrition Notes Start: 08/16/21 09:28 Freq: Status: Active Protocol: Document 08/16/21 09:28 DONI (Rec: 08/16/21 09:39 DONI [id number]) Nutrition Notes Need for Assessment generated from: Low BMI Initial or Follow up Brief Note Current Diagnosis Hypertension Other Pertinent Diagnosis s/p Gallstone Pancreatitis, Leukocytosis. Current Diet GI Soft Diet (from L 08/16). Height 5 ft 10 in Weight 28 kg [place] Body Weight (kg) 75.45 BMI 8.8 Weight change and time frame Discrepancy on Ht and Wt recorded; last admission, Pt's Ht was 5 ft and Wt was 90.718 Kg on 11/23/2018. Subjective/Other Information RD consult for Low BMI assessment. Pt's BMI is, according to past record, 39.06 Kg/m2. Procedure 08/15: Laparoscopic colecystectomy. Well tolerated , according to Progress notes and Operative Report. Percent of energy/protein needs met: Prescribed GI Soft Diet provides for energy/protein needs (2,000 Kcal/82 g) during LOS Nutrition Intervention Follow-Up By: 08/23/21 Additional Comments Continue monitoring food tolerance, %PO intake of meals , and BM.
[2021-08-16] MEDS ORDERED: POTASSIUM CHLORIDE ER 20 MEQ TAB PO ONE ×2 (15:00→19:00)
[2021-08-16] MEDS ORDERED: SODIUM CHLORIDE 0.45% 1000 ML 1,000 ML IV SCH (16:00)
--- NOTE | 2021-08-16 16:00 | Progress Note ---
Assessment and Plan 50-year-old male s/p lap sejal, POD 1 1. gallstone pancreatitis Pt stable. LFTs improving. Bili normal. Plan: 1.Reg diet 2. prn PO pain and nausea control 3. DVT ppx 4. OOB/ambulate 5. IS/pulm toilet 6. Ok to dc home - patient doesnt have a ride home til am. May follow up in surgery clinic in 2 wks. D/W Dr. Hancock. Subjective Date of service: 08/16/21 Narrative: Pt seen and examined. c/o incisional soreness. No f/c. Zahraa diet. Objective Vital Signs - 12hr 08/16/21 08/16/21 08/16/21 04:43 11:19 14:04 Temperature 98.3 F 99.2 F Pulse Rate 79 89 Respiratory 18 16 Rate Blood Pressure 143/80 134/84 O2 Sat by Pulse 95 90 96 Oximetry - Labs 08/16/21 05:27 08/16/21 05:27 Diabetes panel 08/16/21 Range/Units 05:27 Sodium 136 L (137-145) mmol/L Potassium 3.5 L (3.6-5.0) mmol/L Chloride 100.2 (98-107) mmol/L Carbon Dioxide 25 (22-30) mmol/L BUN 7 L (9-20) mg/dL Creatinine 0.8 (0.8-1.3) mg/dL Glucose 100 (75-100) mg/dL Calcium 8.8 (8.4-10.2) mg/dL AST 33 (5-40) units/L ALT 86 H (7-56) units/L Alkaline Phosphatase 72 (35-129) units/L Total Protein 6.0 L (6.3-8.2) g/dL Albumin 3.5 L (3.9-5) g/dL Calcium panel 08/16/21 Range/Units 05:27 Calcium 8.8 (8.4-10.2) mg/dL Albumin 3.5 L (3.9-5) g/dL Pituitary panel 08/16/21 Range/Units 05:27 Sodium 136 L (137-145) mmol/L Potassium 3.5 L (3.6-5.0) mmol/L Chloride 100.2 (98-107) mmol/L Carbon Dioxide 25 (22-30) mmol/L BUN 7 L (9-20) mg/dL Creatinine 0.8 (0.8-1.3) mg/dL Glucose 100 (75-100) mg/dL Calcium 8.8 (8.4-10.2) mg/dL Adrenal panel 08/16/21 Range/Units 05:27 Sodium 136 L (137-145) mmol/L Potassium 3.5 L (3.6-5.0) mmol/L Chloride 100.2 (98-107) mmol/L Carbon Dioxide 25 (22-30) mmol/L BUN 7 L (9-20) mg/dL Creatinine 0.8 (0.8-1.3) mg/dL Glucose 100 (75-100) mg/dL Calcium 8.8 (8.4-10.2) mg/dL Total Bilirubin 0.80 (0.1-1.2) mg/dL AST 33 (5-40) units/L ALT 86 H (7-56) units/L Alkaline Phosphatase 72 (35-129) units/L Total Protein 6.0 L (6.3-8.2) g/dL Albumin 3.5 L (3.9-5) g/dL
[2021-08-16] MEDS: AMITRIPTYLINE 10 MG TAB PO SCH (21:27)
[2021-08-16] MEDS: PRAZOSIN 1 MG CAP PO SCH (21:29)
--- NOTE | 2021-08-17 07:49 | Discharge Summary ---
Providers - Providers Date of Admission: 08/13/21 13:24 Date of discharge: 08/17/21 Attending physician: ALLIE CASTELLANOS MD 08/13/21 11:32 Consult to Physician [CONS] Routine Comment: Consulting Provider: HEENA FISHER Physician Instructions: Reason For Exam: biliary dz Hospitalization Reason for admission: acute pancreatitis Condition: Stable Hospital course: Abdominal CT was positive for signs of acute pancreatitis. Abdominal ultrasound showed gallbladder wall thickening with gallstones. Due to patient history of prior gallstone pancreatitis decision was made for cholecystectomy during this admission. Once the lipase level normalized, the patient was taken to the OR for laparoscopic cholecystectomy on 08/15/21. Once patient was able to tolerate diet and ambulating, he was discharged home. Disposition: 01 HOME / SELF CARE / HOMELESS Final Discharge Diagnosis (Prints w/discharge instructions): Gallstone pancreatitis. Elevated liver enzymes. Hypertension Time spent for discharge: 35 minutes Core Measure Documentation - Palliative Care Palliative Care/ Comfort Measures: Not Applicable - Core Measures Any of the following diagnoses?: none Exam - Physical Exam Narrative exam: GENERAL: Well-developed well-nourished. In no acute distress. CHEST/LUNGS: CTAB on room air HEART/CARDIOVASCULAR: RRR. No murmur, rubs or gallops appreciated. ABDOMEN: Surgical scars intact. +BS. ND. Mildly tender to palpation. SKIN: No rashes noted. NEURO: No focal motor deficit. Follows all commands. MUSCULOSKELETAL: No joint effusion EXTREMITIES: No cyanosis, clubbing or edema. PSYCH: Cooperative. - Constitutional Vitals: Temp Pulse Resp BP Pulse Ox 99.1 F 87 18 154/81 91 08/17/21 04:17 08/17/21 04:17 08/17/21 04:17 08/17/21 04:17 08/17/21 04:17 Plan Care Plan Goals: Please follow-up with your primary care provider. Please follow-up with Dr. Fisher in office within 2 weeks. Do not do any heavy lifting prior to your appointment with Dr. Fisher. Follow up with: HEENA FISHER DO [Staff Physician] - 14 Days PRIMARY CARE, [Referring] - 3-5 Days Forms: Work/School Release Form Prescriptions: amLODIPine 5 mg PO QDAY 30 Days #30 tab hydroCHLOROthiazide [HCTZ] 12.5 mg PO QDAY 30 Days #30 capsule HYDROcodone/APAP 5-325 [Centre 5-325 mg TAB] 1 each PO Q6H PRN 3 Days #12 tablet PRN Reason: Pain, Moderate (4-6)
[2021-08-17] MEDS: SERTRALINE 100 MG TAB PO SCH (09:32)
[2021-08-17] MEDS: amLODIPine 5 MG TAB PO SCH (09:32)
[2021-08-17] MEDS: POLYETHYLENE GLYCOL 3350 17 GM POWDER PO SCH (09:33)
[2021-08-17] MEDS: hydroCHLOROthiazide 12.5 MG CAP PO SCH (09:33)
[2021-08-17] MEDS: HEPARIN 5,000 UNIT/1 ML VIAL SUB-Q SCH (11:00)
[2021-08-17 11:17] VITALS: BP 163/86
== END 2021-08-17 11:47 | disposition home or self-care (01) | DRG 417 ==
LOC: ED 08:04 → 3A 13:24
PROVIDERS: ADMIT Internal Medicine; ATTEND Student in an Organized Health Care Education/Training Program
PROC: 0FT44ZZ Resection of Gallbladder, Percutaneous Endoscopic Approach (ICD-10-PCS; principal; 2021-08-15)
DX: K80.12 Calculus of gallbladder with acute and chronic cholecystitis without obstruction (principal); K85.10 Biliary acute pancreatitis without necrosis or infection; D72.829 Elevated white blood cell count, unspecified; D75.1 Secondary polycythemia; R74.01 Elevation of levels of liver transaminase levels; Z91.013 Allergy to seafood; I10 Essential (primary) hypertension; Z82.49 Family history of ischemic heart disease and other diseases of the circulatory system
CPT/HCPCS: 36415; 74177; 76700; 80053; 82150; 83690; 84478; 85007; 85025; 85610; 88304; G0378; J1815; J3490; J7120; Q0162; J0690; J1170; J1644; J1885; J2270; J2405; J2704; J2710; J2765; J3010; J7030; Q9967